=== PATIENT | male | born 1950 | race Caucasian/White ===

== ENCOUNTER 2016-05-21 16:17 | Inpatient (IN) | payer OTHER, MEDICARE ==
[~2016-05-21] VITALS: Ht 177.8 cm; Wt 95.3 kg
--- NOTE | 2016-05-21 16:34 | NUR ---
RECEIVED 65 YO MALE C/O EPISODES OF CLAMMINESS, NAUSEA, FEELING ANXIOUS X ONE MONTH, ONE OR TWICE A WEEK. SYMPTOMS NON STOP SINCE 10 AM TODAY. RELIEVED BY HOT SHOWER THIS AM BUT CAME RIGHT BACK. NO C/O CP. SOME SOB. + NAUSEA, VOMITED ONCE TODAY. NO C/O ABDOMINAL PAIN
--- NOTE | 2016-05-21 16:36 | NUR ---
PT SENT TO [facility] FOR EKG. PULSE VERY IRREGULAR.
--- NOTE | 2016-05-21 16:54 | ED CARDIAC/CP/PALPITATIONS ---
History of Present Illness General Chief Complaint: General Adult Stated Complaint: PT SOB ,ANXIETY ,SWEATING Source: patient Exam Limitations: no limitations Vital Signs & Intake/Output Vital Signs & Intake/Output Vital Signs Date Time Temp Pulse Resp B/P Pulse O2 O2 Flow FiO2 Ox Delivery Rate 05/24 1147 62 132/64 05/24 0817 97.1 64 18 122/70 96 Room Air 05/23 2246 97.7 58 18 160/78 98 Room Air 05/23 2129 59 05/23 1654 97.4 69 20 122/70 96 Room Air 05/23 1449 142/80 ED Intake and Output 05/24 0000 05/23 1200 Intake Total 1210 435 Output Total 500 600 Balance 710 -165 Intake, IV 10 15 Intake, Oral 1200 420 Output, Urine 500 600 Patient 210 lb Weight Reconcile Medications Aspirin (Ecotrin*) 81 MG TABLET.DR 1 TAB PO DAILY HEART/BLOOD (Reported) Cholecalciferol (Vitamin D3) (Vitamin D) 2,000 UNIT CAPSULE 1 CAP PO DAILY SUPPLEMENT (Reported) Diphenhydramine HCl (Benadryl) 25 MG CAPSULE 1 CAP PO DAILY ALLERGIES ( Reported) Fenofibrate 160 MG TABLET 1 TAB PO DAILY CHOLESTEROL/TRIGLYCERIDES (Reported) Gabapentin 300 MG CAPSULE 1 CAP PO 4XDAILY NERVE PAIN (Reported) Metformin HCl 1,000 MG TABLET 1 TAB PO BID DM (Reported) Multivitamin (Multi-Day Vitamins) 1 EACH TABLET 1 TAB PO DAILY SUPPLEMENT ( Reported) [place]-3 Fatty Acids/Fish Oil (Fish Oil 1,000 MG Softgel) (Unknown Strength) CAPSULE (Unknown Dose) PO DAILY SUPPLEMENT (Reported) Oxycodone HCl/Acetaminophen (Oxycodone-Acetaminophen 10-325) 10 MG-325 MG TABLET 1 TAB PO Q4-6H PRN PAIN (Reported) Triage Note: RECEIVED 65 YO MALE C/O EPISODES OF CLAMMINESS, NAUSEA, FEELING ANXIOUS X ONE MONTH, ONE OR TWICE A WEEK. SYMPTOMS NON STOP SINCE 10 AM TODAY. RELIEVED BY HOT SHOWER THIS AM BUT CAME RIGHT BACK. NO C/O CP. SOME SOB. + NAUSEA, VOMITED ONCE TODAY. NO C/O ABDOMINAL PAIN Triage Nurses Notes Reviewed? yes HPI: THIS PATIENT is a 65-year-old male with a past medical history including hyperlipidemia, chronic back pain, and diabetes who presented to the emergency department today for evaluation of multiple episodes of sweating, nausea, and shortness of breath. The patient reported that in February he was at pain management when they told him to go get x-rays of his lower back for pain he was having. X-ray showed, "something," and he was referred to get an ultrasound to rule out any aneurysm. He had an ultrasound at the beginning of March which was negative for aneurysm. On April 18 the patient reported that he had an episode of sweating and nausea. He took a hot shower and his symptoms resolved. Since that time he has had similar episodes approximately 2 times a week which are usually resolved once he takes a hot shower. He reported that he feels his heart skipping a beat when this happens and it makes him feel like it is difficult to breathe. Usually the episodes only last approximately 15 minutes. However, today he has had multiple episodes and since about 10:00 this morning the episode has been constant. He reported that he vomited once after eating lunch with associated nausea. No current nausea or abdominal pain. The patient is denying any chest pain or difficulty breathing at the present. He reported that he just feels, "off." He recently had blood work done by his doctor which was largely unremarkable. No cardiac workup was done at that time. He denied any fevers, chills, visual changes, numbness and tingling worse from his baseline neuropathy, constipation, or diarrhea. (WINSTON CASTELLON PA-C) Allergies Coded Allergies: NO KNOWN ALLERGIES (UNKNOWN 05/24/16) (DELTA JOEL,ROBERTO) Past History Travel History Traveled to [place] past 21 day No Medical History Any Pertinent Medical History? see below for history Neurological: NONE EENT: NONE Cardiovascular: hyperlipidemia Respiratory: NONE Gastrointestinal: NONE Hepatic: NONE Renal: NONE Musculoskeletal: chronic back pain Psychiatric: NONE Endocrine: diabetes Blood Disorders: NONE Cancer(s): NONE Surgical History Surgical History: non-contributory Psychosocial History What is your primary language Lithuanian Tobacco Use: Quit >30 days ago Family History Hx Contributory? No (WINSTON CASTELLON PA-C) Review of Systems Review of Systems Constitutional: Reports: see HPI. EENTM: Reports: no symptoms. Respiratory: Reports: see HPI. Cardiovascular: Reports: see HPI. GI: Reports: see HPI. Genitourinary: Reports: no symptoms. Musculoskeletal: Reports: see HPI. Skin: Reports: no symptoms. Neurological/Psychological: Reports: see HPI. All Other Systems: Reviewed and Negative (CANDE MORROW,WINSTON) Physical Exam Physical Exam Cardiovascular: REGULAR RATE WITH AN IRREGULAR RHYTHM. nO MURMURS, RUBS, OR GALLOPS. nO jvd OR CAROTID BRUITS Comments: Well-developed well-nourished person in no acute distress HEENT: Normal EENT exam, head normocephalic, moist mucous membranes PERRLA bilaterally Neck: Supple, no lymphadenopathy Back: Normal inspection Respiratory: No respiratory distress. Speaking in full sentences. Lungs clear to auscultation bilaterally with no wheezes, rales, or rhonchi Abdomen: Soft, nontender and nondistended. No organomegaly. Normoactive bowel sounds. No rebound or guarding. No peritoneal signs Extremity: No edema, no calf tenderness to palpation, normal and equal pulses. Neuro: Alert oriented x3, cranial nerves II through XII grossly intact. Skin: No appreciable rash on exposed skin, skin is warm and dry. Psych: Mood and affect is normal Core Measures ACS in differential dx? Yes Severe Sepsis Present: No Septic Shock Present: No (WINSTON CASTELLON PA-C) Progress Differential Diagnosis: AMI, aortic dissection, atrial fibrillation, cholecystitis, CHF/pulm edema, costochondritis, hyperkalemia, hyperthyroid, hyperventilation, musculoskeletal pain, myocarditis, pancreatitis, pericarditis, pneumonia, pneumothorax, PSVT, pulmonary embolism, PUD/GERD, PVCs/PACs, unstable angina Plan of Care: Orders Procedure Date/time Status THYROID STIMUL IMMUNOGLOB Ref$ 05/24 0600 Active THYROID STIMULATING HORMONE 05/24 0600 Complete FREE T4 05/24 0600 Complete THYROID ANTIBODY PANEL 05/24 0600 Complete House Staff 05/24 UNK Active EKG 05/22 0200 Active Current Medications Sig/Nicole Start time Last Medication Dose Stop Time Status Admin Dipyridamole 55 MG ONE ONE 05/24 1115 AC (Persantine I.v. 5MG 05/24 1514 Per Ml (10ML Baylee)) Dextrose/Water 29 ML (D5w (Persantine Stress Test)) Ibuprofen 400 MG Q4P PRN 05/24 0930 AC (Motrin) Oxycodone/ 2 TAB Q4-6 PRN PRN 05/24 0930 AC Acetaminophen (Percocet) Laboratory Tests 05/24/16 0620: Thyroid Stim Immunoglob Pending 05/24/16 0620: TSH 0.305, Free T4 1.40, Thyroglobulin Antibody 16, Thyroid Peroxidase Ab 46 Diagnostic Imaging: Viewed by Me: Radiology Read. Discussed w/RAD: Radiology Read. CXR Impression: PATIENT: GENE GE PRESENT AGE: 65 PATIENT ACCOUNT NO: [id number] : 52 LOCATION: [facility] ORDERING PHYSICIAN: WINSTON CASTELLON PA-C SERVICE DATE: 05/21/16 EXAM TYPE: RAD - XRY-CHEST XRAY, PA AND LATERAL EXAMINATION: CHEST 2 VIEWS CLINICAL INFORMATION: Nausea, vomiting. COMPARISON: None. TECHNIQUE: PA and lateral views of the chest were obtained. FINDINGS: The cardiac silhouette is not enlarged. The mediastinal and hilar contours are unremarkable. There are neither pleural effusions nor pneumothoraces. There are no consolidations. The osseous structures are unremarkable. IMPRESSION: No evidence for acute disease. DICTATED BY: POLA POLANCO MD DATE/TIME DICTATED:05/21/161754 OYSTER FARMER:LISSA DATE/TIME TRANSCRIBED:05/21/161754 CONFIDENTIAL, DO NOT COPY WITHOUT APPROPRIATE AUTHORIZATION. <Electronically signed in Other Vendor System> SIGNED BY: POLA POLANCO MD 05/21/16 1800 Initial ED EKG: MULTIPLE PREMATURE VENTRICULAR CONTRACTIONS, 71 BPM Comments: 05/21/2016 6:14:54 PM: Dr. Heath is at the patient's bedside for avdi-ls-papy evaluation. 05/21/2016 6:20:32 PM: I spoke to on-call box stapler, Dr. Munoz. He reported that he will consult on this patient. This patient was handed off to Dr. Heath for telemetry observation. (CANDE MORROW,WINSTON) Departure Departure Disposition: STILL A PATIENT Condition: Stable Clinical Impression Primary Impression: Abnormal EKG Referrals: EDIS MARISCAL MD (PCP/Family) Departure Forms: Customer Survey General Discharge Information Observation Note Spoke With: SONIA FERREIRA MD Patient In: Non-ED OBS Care Area Rationale for Observation: My rational for observation is as follows [This patient is a 65 year old male with a history of diabetes who presented for evaluation of diaphoresis, nausea, and chest palpitation. Abnormal EKG with ectopy. Troponin 0.06. Patient should be a telemetry observation for echocardiogram, trend labs, serial troponin levels, serial EKGs, stress test, and close monitoring.]. (CANDE MORROW,WINSTON) PA/OIL AND GAS EXPLORATION TECHNICIAN Co-Sign Statement Statement: ED Attending supervision documentation- [] I saw and evaluated the patient. I have also reviewed all the pertinent lab results and diagnostic results. I agree with the findings and the plan of care as documented in the PA's/OIL AND GAS EXPLORATION TECHNICIAN's documentation. [X] I have reviewed the ED Record and agree with the PA's/OIL AND GAS EXPLORATION TECHNICIAN's documentation. [] Additions or exceptions (if any) to the PAs/OIL AND GAS EXPLORATION TECHNICIAN's note and plan are summarized below: [] (DELTA JOEL,ROBERTO) Critical Care Note Critical Care Note Critical Care Time: 30-74 min (CANDE MORROW,WINSTON) 30.2, RDW 13.2, MPV 6.8 L, Gran % 54.0, Lymphocytes % 33.9, Monocytes % 8.2, Eosinophils % 3.4, Basophils % 0.5, Absolute Granulocytes 3.8, Absolute Lymphocytes 2.4, Absolute Monocytes 0.6, Absolute Eosinophils 0.2, Absolute Basophils 0, PUBS MCHC 33.8, Serum Alcohol Pending Diagnostic Imaging: Viewed by Me: Radiology Read. Discussed w/RAD: Radiology Read. CXR Impression: PATIENT: GENE GE PRESENT AGE: 65 PATIENT ACCOUNT NO: [id number] : 52 LOCATION: [facility] ORDERING PHYSICIAN: WINSTON CASTELLON PA-C SERVICE DATE: 05/21/16 EXAM TYPE: RAD - XRY-CHEST XRAY, PA AND LATERAL EXAMINATION: CHEST 2 VIEWS CLINICAL INFORMATION: Nausea, vomiting. COMPARISON: None. TECHNIQUE: PA and lateral views of the chest were obtained. FINDINGS: The cardiac silhouette is not enlarged. The mediastinal and hilar contours are unremarkable. There are neither pleural effusions nor pneumothoraces. There are no consolidations. The osseous structures are unremarkable. IMPRESSION: No evidence for acute disease. DICTATED BY: POLA POLANCO MD DATE/TIME DICTATED:05/21/161754 OYSTER FARMER:LISSA DATE/TIME TRANSCRIBED:05/21/161754 CONFIDENTIAL, DO NOT COPY WITHOUT APPROPRIATE AUTHORIZATION. <Electronically signed in Other Vendor System> SIGNED BY: POLA POLANCO MD 05/21/16 1800 Initial ED EKG: MULTIPLE PREMATURE VENTRICULAR CONTRACTIONS, 71 BPM Comments: 05/21/2016 6:14:54 PM: Dr. Heath is at the patient's bedside for [id number] evaluation. 05/21/2016 6:20:32 PM: I spoke to on-call box stapler, Dr. Munoz. He reported that he will consult on this patient. This patient was handed off to Dr. Heath for telemetry observation. Departure Departure Disposition: STILL A PATIENT Condition: Stable Clinical Impression Primary Impression: Abnormal EKG Referrals: EDIS MARISCAL MD (PCP/Family) Departure Forms: Customer Survey General Discharge Information Observation Note [facility]: [facility] Patient In: Non-ED OBS Care Area Rationale for Observation: My rational for observation is as follows [This patient is a 65 year old male with a history of diabetes who presented for evaluation of diaphoresis, nausea, and chest palpitation. Abnormal EKG with ectopy. Troponin 0.06. Patient should be a telemetry observation for echocardiogram, trend labs, serial troponin levels, serial EKGs, stress test, and close monitoring.]. Critical Care Note Critical Care Note Critical Care Time: 30-74 min
--- NOTE | 2016-05-21 17:02 | NUR ---
PT TO ROOM19 BY WINSTON JACKSON PA TO BEDSIDE FOR PT EVAL.
[2016-05-21 17:23] LABS: ABSOLUTE BASOPHIL COUNT 0 /CUMM (0.0-0.2); ABSOLUTE EOSINOPHIL COUNT 0.2 /CUMM (0.0-0.7); ABSOLUTE GRANULOCYTE CT 3.8 /CUMM (1.4-6.5); ABSOLUTE LYMPH COUNT 2.4 /CUMM (1.2-3.4); ABSOLUTE MONOCYTE COUNT 0.6 /CUMM (0.10-0.60); BASOPHIL % 0.5 % (0.0-2.0); EOSINOPHIL % 3.4 % (0-5); HEMATOCRIT 45.8 % (42-52); MEAN CORPUSCULAR HGB 30.2 PG (27.0-31.0); MEAN CORPUSCULAR HGB CONC 33.8 G/DL (33.0-37.0); MEAN CORPUSCULAR VOLUME 89.3 FL (80.0-94.0); MEAN PLATELET VOLUME 6.8 FL (7.4-10.4); PLATELET COUNT 223 /CUMM (130-400); RBC DISTRIBUTION WIDTH 13.2 % (11.5-14.5); RED BLOOD CELL CT 5.13 /CUMM (4.70-6.10); WHITE BLOOD CELL COUNT 7.1 /CUMM (4.8-10.8)
[2016-05-21 17:37] LABS: PT 10.9 SEC (9.4-12.5); PTT 31 SEC (25-37)
[2016-05-21] MEDS ORDERED: METFORMIN HCL1000 M1 PO (17:48)
[2016-05-21] MEDS ORDERED: OXYCODONE-ACET1 EAC1 PO (17:49)
[2016-05-21] MEDS ORDERED: GABAPENTIN300 M2 PO (17:50)
[2016-05-21] MEDS ORDERED: ASPIRIN EC81 M1 PO (17:50)
--- NOTE | 2016-05-21 17:50 | NUR ---
PT TO AND FROM RAD BY STRETCHER. AWAITING RESULTS.
[2016-05-21] MEDS ORDERED: FENOFIBRATE160 M1 PO (17:51)
[2016-05-21] MEDS ORDERED: BENADRYL25 MG PO (17:51)
[2016-05-21] MEDS ORDERED: VITAMIN D2000 UNIT PO (17:51)
[2016-05-21] MEDS ORDERED: FISH OIL 1,0001 EAC4 PO (17:52)
[2016-05-21] MEDS ORDERED: MULTI-DAY VITA1 EACH PO (17:52)
--- NOTE | 2016-05-21 18:00 | RADIOLOGY REPORT ---
EXAMINATION: CHEST 2 VIEWS CLINICAL INFORMATION: Nausea, vomiting. COMPARISON: None. TECHNIQUE: PA and lateral views of the chest were obtained. FINDINGS: The cardiac silhouette is not enlarged. The mediastinal and hilar contours are unremarkable. There are neither pleural effusions nor pneumothoraces. There are no consolidations. The osseous structures are unremarkable. IMPRESSION: No evidence for acute disease.
--- NOTE | 2016-05-21 18:10 | NUR ---
MD DELTA TO BEDSIDE FOR PT EVAL.
--- NOTE | 2016-05-21 18:32 | NUR ---
SST TUBE DRAWN AND SENT TO LAB.
--- NOTE | 2016-05-21 18:52 | NUR ---
PT MEDICATED WITH ROXICODONE PER EMAR.
--- NOTE | 2016-05-21 20:20 | History & Physical ---
ROLLY JOEL,AYESHA 05/21/16 2019: General Information and HPI MD Statement: I have seen and personally examined GENE GE and documented this H&P. The patient is a 65 year old M who presented with a patient stated chief complaint of [sweating, anxiety]. Source of Information: patient Exam Limitations: no limitations History of Present Illness: Patient is a 65-year-old gentleman with PMH of DM, HTN, chronic back pain and knee pain, who came to the ED due to episodes of sweating and severe anxiety. Patient has been having these symptoms since about 1 month ago with episodes of sweating and feeling 'clammy', with anxiety, not associated with chest pain, palpitations or dizziness. Patient also reported feeling of 'gasping' when these episodes happened and felt he needed to take deep breaths, but had no SOB. These episodes lasted for about 5 minutes, first occurred once or 2 twice a week, however it has been more frequent during the past couple of days, he reports once waking up from sleep with excessive sweating last night, and since 10 AM today he has had the symptoms non-stop. Reports that taking shower brings some temporary relief . Reports nausea and vomited once today after lunch. Reports stopped smoking about a month ago and feels his symptoms began right after that, although he has been using nicotine gums, which hasn't helped. He went to the PCP for the symptoms who told him they may be due to a withdrawal from gabapentin as he wasn't taking them at that time. However he has has symptoms afterwards despite taking gabapentin. In the PCP visit he was found to have blood in the stool in the screening and is scheduled for colonoscopy on June 17. During the same visit he was told by the nurse that they felt irregularity in his heartbeat however he doesn't feel any palpitations. Has no history of heart disease. He is diabetic but sugars have been well-controlled. Last time he checked was 145. He also has been checking BP and HR since the PCP visit at home and had measurements of BP: 168/98, HR:110 and another time BP:155/96 and HR:70. Today in the evening had one time BP of 85/58 which thinks was an error but still made him more concerned and decided to come to the ED. Patient reports chronic back pain 8-9/10 in severity (s/p surgeries) as well as knee pain, he has to use three pillows below his head and one pillow underneath his right knee when sleeping (due to pain). Does not get SOB when lying flat. Allergies/Medications Allergies: Coded Allergies: NO KNOWN ALLERGIES (05/21/16) Home Med list Aspirin (Ecotrin*) 81 MG TABLET.DR 1 TAB PO DAILY HEART/BLOOD (Reported) Cholecalciferol (Vitamin D3) (Vitamin D) 2,000 UNIT CAPSULE 1 CAP PO DAILY SUPPLEMENT (Reported) Diphenhydramine HCl (Benadryl) 25 MG CAPSULE 1 CAP PO DAILY ALLERGIES ( Reported) Fenofibrate 160 MG TABLET 1 TAB PO DAILY CHOLESTEROL/TRIGLYCERIDES (Reported) Gabapentin 300 MG CAPSULE 1 CAP PO 4XDAILY NERVE PAIN (Reported) Metformin HCl 1,000 MG TABLET 1 TAB PO BID DM (Reported) Multivitamin (Multi-Day Vitamins) 1 EACH TABLET 1 TAB PO DAILY SUPPLEMENT ( Reported) [place]-3 Fatty Acids/Fish Oil (Fish Oil 1,000 MG Softgel) (Unknown Strength) CAPSULE (Unknown Dose) PO DAILY SUPPLEMENT (Reported) Oxycodone HCl/Acetaminophen (Oxycodone-Acetaminophen 10-325) 10 MG-325 MG TABLET 1 TAB PO Q4-6H PRN PAIN (Reported) Compliance With Home Meds: GOOD Past History Travel History Traveled to [place] past 21 day No Medical History Neurological: NONE EENT: NONE Cardiovascular: hyperlipidemia Respiratory: NONE Gastrointestinal: NONE Hepatic: NONE Renal: NONE Musculoskeletal: chronic back pain Psychiatric: NONE Endocrine: diabetes Blood Disorders: NONE Cancer(s): NONE Surgical History Surgical History: non-contributory Past Family/Social History Family History Relations & Conditions if any FATHER FH: diabetes mellitus BROTHER FH: diabetes mellitus BROTHER FH: diabetes mellitus Psychosocial History Where do you live? Home (with ) Smoking Status: Former Smoker (quit 1m ago, 1pack/d for 50 y) ETOH Use: occasional use, 6 packs a week Illicit Drug Use: denies illicit drug use Functional Ability ADLs Independent: dressing, eating, toileting, bathing. Ambulation: independent Employment History Employment Disability Review of Systems Review of Systems Constitutional: Reports: chills. Denies: fever, malaise, weakness, unexplained weight loss. EENTM: Denies: visual changes. Cardiovascular: Denies: chest pain, orthopena, palpitations, peripheral edema, syncope. Respiratory: Denies: cough, short of breath, sputum production. GI: Reports: nausea, vomiting. Denies: bloating, changes in stool. Genitourinary: Reports: frequency. Musculoskeletal: Reports: back pain, joint pain (knees). Skin: Denies: change in skin color, rash. Neurological/Psychological: Reports: anxiety. Denies: headache, numbness, weakness. Exam & Diagnostic Data Last 24 Hrs of Vital Signs/I&O Vital Signs Date Time Temp Pulse Resp B/P Pulse O2 O2 Flow FiO2 Ox Delivery Rate 05/22 0004 98.0 72 20 167/78 94 05/21 1940 97.4 72 18 157/85 96 Room Air 05/21 1825 97.5 66 20 159/86 97 Room Air 05/21 1702 Room Air 05/21 1651 96.8 71 18 185/90 98 Room Air Intake & Output 05/22 0800 05/22 0000 05/21 1600 Intake Total Output Total Balance Patient 96.615 kg Weight Physical Exam General Appearance Alert, Oriented X3, Cooperative, No Acute Distress Skin has flushing in the face HEENT Atraumatic, EOMI, dry mucous membranes Neck Supple, No JVD Cardiovascular Regular Rate, Normal S1, Normal S2, No Murmurs Lungs Clear to Auscultation, Normal Air Movement Abdomen Normal Bowel Sounds, Soft, No Tenderness, distended Neurological Normal Speech, Normal Tone, absent knee reflexes and decreased (1+) relfex in the left biceps ) Extremities No Cyanosis, No Edema, Normal Pulses, No Tenderness/Swelling Vascular Normal Pulses, Pulses Symmetrical Last 24 Hrs of Labs/Dong: Laboratory Tests 05/22/16 0025: Methadone Screen Pending, Barbiturate Screen Pending, Ur Phencyclidine Scrn Pending, Amphetamines Screen Pending, U Benzodiazepines Scrn Pending, Urine Cocaine Screen Pending, Urine Cannabis Screen Pending 05/22/16 0005: Troponin I Pending 05/21/16 2226: Lactic Acid 1.6 05/21/16 1830: Lyme Disease Antibody Pending 05/21/16 1714: TSH Cancelled, Free T4 Cancelled 05/21/16 1711: Anion Gap 16, Estimated GFR > 60, BUN/Creatinine Ratio 14.4, Glucose 146 H, Hemoglobin A1c Pending, Lactic Acid 2.3 H, Calcium 10.4 H, Magnesium 1.9, Total Bilirubin 0.6, Direct Bilirubin 0.3, AST 51, ALT 73 H, Alkaline Phosphatase 73, Troponin I 0.06, Total Protein 7.8, Albumin 4.8, Globulin 3.0, Albumin/Globulin Ratio 1.6, Amylase 31, Lipase 136, TSH 0.135 L, Free T4 1.36, PT 10.9, INR 1.04, APTT 31, CBC w Diff NO MAN DIFF REQ, RBC 5.13, MCV 89.3, MCH 30.2, RDW 13.2, MPV 6.8 L, Gran % 54.0, Lymphocytes % 33.9, Monocytes % 8.2, Eosinophils % 3.4, Basophils % 0.5, Absolute Granulocytes 3.8, Absolute Lymphocytes 2.4, Absolute Monocytes 0.6, Absolute Eosinophils 0.2, Absolute Basophils 0, PUBS MCHC 33.8, Serum Alcohol < 10.0 Assessment/Plan Assessment: Patient is a 65 year old with PMH of HTN and DM that is come to the ED due to progressive worsening symptoms of diaphoresis and feeling of anxiety. Patient was found to have irregular beats during a previous PCP visit. ED work up shows low TSH levels, elevated lactic acid and metabolic acidosis, elevated Ca. Also mild elevation in ALT. Problem list and plan: Episodes of severe anxiety with sweating In the setting of tachycardia, flushing, decreased TSH levels, the etiology can be hyperthyroidism. Patient also reported elevated blood pressures to 168/98. Also BP of 180/90 at 2 am after admission. peochromocytoma can also be one of the possible etiologies. Patient denies chest pain, palpitation or dizziness. Has PVCs in EKG with no ST changes. Troponin 0.06. Reports nausea. * repeat TFT in a.m. and add T4 and T3 * serial troponin and EKG to rule out MT * vital signs every shift * Zofran PRN * Endocrine consult in am Metabolic acidosis with elevated lactic acid Lactic acidosis could be due to metformin. Patient has normal capillary refill Alcohol intoxication could be a possibility although the Patient reports consuming alcohol a pack of 6 beers per week and denies any alcohol dependence. * IV NaCl 75cc/hour * repeat lactic acid in 6 hours * urine toxicology and serum alcohol level * Endocrine consult in am History of DM reports well controlled DM, BS was 145 last time checked. takes Metformin 1000 BID * Held metformin * accuchecks TIDAC * Insulin NSS * HbA1C Hypercalcemia Takes multivitamins and VitD3 * check PTH * Check 1,25 dihydroxy vitamin D Diet * CC3 DVT px * Lovenox Full code As Ranked By This Provider Problem List: 1. Hyperthyroidism 2. Anxiety 3. Diaphoresis Core Measures/Miscellaneous Acute Coronary Syndrome ACS Diagnosis: No Cerebrovascular Accident CVA/TIA Diagnosis: No Congestive Heart Failure CHF Diagnosis: No Venous Thromboembolism VTE Risk Factors: Acute medical illness, Age > 40 No [facility] VTE prophylaxis d/t: No contraindications No VTE Pharm Prophylaxis d/t: No contraindications VTE Diagnosis: No VTE Type: NONE VTE Confirmed by (Test): NONE Severe Sepsis Severe Sepsis Present: No Septic Shock Septic Shock Present: No Miscellaneous Documentation Attending Case Discussed With: SONIA FERREIRA MD Primary Care Physician: EDIS MARISCAL MD Patient sees these Specialists none Level of Patient Care: Telemetry JUSCIRA 05/21/16 1979: Resident Review Statement Resident Statement: examined this patient, discussed with international account manager, agreed with international account manager Other Findings: This is a 65 years old gentleman with past medical history of diabetes mellitus and hyperlipidemia who is presenting with 1 month history of clumsiness nausea vomiting anxiousness with the first episode starting on April 18 after [place] 500 mg daily memorable to the patient. After that initial episode the patient has been having 1-2 episodes a week usually short lasting for about 5 minutes. Today he is coming because since morning has been having the same feeling and is consistently persisting which is of great concern to the patient. He acknowledges that it feels like a panic attack but he has never had anxiety or panic attack in the past and is not on any antianxiety medications. He denies any chest pain associated with these episodes though he acknowledges palpitation and sometimes measuring his heart rate and finding it to be about 110. Patient reports sweating and sometimes he wakes up completely soaked in sweat with the same feeling of clumsiness and anxiousness. She denies shortness of breath, dizziness or finding low blood sugar with the episodes consistently blood pressure has been on 140s when having the symptoms. On arrival in the ER patient was afebrile 96.8 heart rate of 71 respiration of 18 blood pressure slightly on the higher side 185/90 and saturating 98% on room air. Physical examination: Patient seated comfortably on the bed watching television not in acute distress alert and oriented to time place and person very cooperative. Extremities: No excessive pound sweating no tremors HEENT: Normal eyes without exophthalmos, wet mucous membranes CVS: Regular rate and rhythm, normal S1-S2 no murmurs RS: Clear lungs bilaterally Labs: Mild lactic acidosis of 2.3, glucose of 146, hypercalcemia 10.4, low TSH 0.134 with normal T4 of 1.36 CXR no evidence of acute pathology Assessment and plan Multiple episodes of transient anxiousness clumsiness associated with nausea and excessive sweating. Problem list Rule out ACS Hyperparathyroidism Hyperparathyroidism Diabetes mellitus Possible hypoglycemic episodes Patient placed in observation, continuous telemetry monitoring Repeated lactic acid within normal level I.6 Serial troponin and EKG to rule out ACS Repeat TSH T3 and T4 Serum parathyroid hormone and vitamin D Accu-Cheks Insulin sliding scale low level Consistent carbohydrate 3 diet JHONSONIA ABARCA 05/22/16 0453: Attending MD Review Statement Attending Statement Attending MD Statement: examined this patient, discuss w/resident/PA/FEED PREPARATION OPERATOR, agreed w/resident/PA/FEED PREPARATION OPERATOR, reviewed EMR data (avail), reviewed images, amended to note Attending Assessment/Plan: CC: Clammy, anxious, sweating PMH: chronic back pain, DM, HLD Patient came to ER for history of episodic clamminess, anxiety, occurring since one month, on and off 1-2 times per week, associated with diaphoresis. Check blood sugar in one of these episodes which was 140, his blood pressure was elevated outpatient evaluation so he has been checking blood pressure which has been fluctuating a lot. Since 10 AM these symptoms of clamminess, anxiety, diaphoresis persisted so he came to ER, at the same time he checked blood pressure at home which was low. Vitals: Hypertensive blood pressure 180/90, otherwise unremarkable. On exam: A O 3, cooperative, no acute distress, neck supple, no JVD, no lymphadenopathy, mucosa moist, no focal neurological deficit, decreased reflexes bilateral lower extremity, no dependent edema, no obvious skin rashes or inflammation CVS: S1-S2, RRR. RS: Clear to auscultate bilaterally. Abdomen: Soft , NT, ND, bowel sounds present. Peripheral pulses perfusion normal. Labs: CBC, BMP, LFT unremarkable except bicarbonate 20, anion gap 16, glucose 146, lactic acid 2.3, calcium 10.4, ALT 73, , INR 1.04. TSH 0.135, free T4 136 CXR: Unremarkable. EKG: Multiple PVCs A and P #1 clamminess, diaphoresis: Episodic. Now, and with persistent symptoms, few PVCs on EKG, troponin 0.06. history of diabetes, place in observation on telemetry for monitoring, serial EKG, troponin. Patient is mildly hypertensive at presentation, monitor blood pressure closely may require treatment. #2 low TSH with normal T4 : Symptoms of anxiety, sweating, diaphoresis. Pulse normal range no tachycardia, no obvious weight gain or weight loss, no diarrhea or other symptoms. Repeat TSH, free T3 and T4 in a.m., endocrinology consult for suspected hypothyroidism. With episode it nature off clamminess, diaphoresis, and hypertension ?Workup regarding secondary causes of hypertension. Checking U tox, check PTH and vitamin D #3 lactic acidosis: 2.3, unclear etiology, blood pressure normal, no obvious source of infection, probably secondary to metformin, continue gentle hydration 75 mL for 1 L then discontinue.
--- NOTE | 2016-05-21 20:42 | NUR ---
HOUSE STAFF TO BEDSIDE FOR PT EVAL.
--- NOTE | 2016-05-21 20:57 | NUR ---
PT HAS A BED 173-21
--- NOTE | 2016-05-21 21:24 | NUR ---
NS INFUSING PER EMAR.
--- NOTE | 2016-05-21 22:18 | NUR ---
REPORT GIVEN TO ZEE GARCIA TO [facility]. DISTRIBUTION CALLED FOR TRANSPORT.
[2016-05-22 00:04] VITALS: BP 167/78
[2016-05-22 02:35] VITALS: BP 180/90
--- NOTE | 2016-05-22 07:30 | NUR ---
NSG NOTE: PATIENT HAD 9BT VTACH; DENIES SYMPTOMS; DR. ROQUE MAHMOOD AWARE; WILL MONITOR
[2016-05-22 08:22] LABS: ABSOLUTE BASOPHIL COUNT 0 /CUMM (0.0-0.2); ABSOLUTE EOSINOPHIL COUNT 0.3 /CUMM (0.0-0.7); ABSOLUTE GRANULOCYTE CT 5.4 /CUMM (1.4-6.5); ABSOLUTE LYMPH COUNT 2.7 /CUMM (1.2-3.4); ABSOLUTE MONOCYTE COUNT 0.6 /CUMM (0.10-0.60); BASOPHIL % 0.5 % (0.0-2.0); EOSINOPHIL % 3.2 % (0-5); HEMATOCRIT 45.3 % (42-52); MEAN CORPUSCULAR HGB 30.6 PG (27.0-31.0); MEAN CORPUSCULAR HGB CONC 34.5 G/DL (33.0-37.0); MEAN CORPUSCULAR VOLUME 88.8 FL (80.0-94.0); MEAN PLATELET VOLUME 6.9 FL (7.4-10.4); PLATELET COUNT 219 /CUMM (130-400); RBC DISTRIBUTION WIDTH 13.1 % (11.5-14.5); WHITE BLOOD CELL COUNT 9.1 /CUMM (4.8-10.8)
[2016-05-22 09:00] VITALS: BP 170/80
--- NOTE | 2016-05-22 09:31 | PN- Housestaff ---
SUSAN HENDRICKS 05/22/16 0912: Subjective Follow-up For: Diaphoresis and anxiety. Hypertension. Tele-Events Since Last Visit: Multiple bigeminy, trigeminy and a 9 beat run. Subjective: Continues to have episodes of feeling sick to the stomach, clamminess, and anxiety. Had an episode overnight where He found himself soaked in sweat. Episodes associated with pounding and fluttering of heart. Ativan seems to calm him down. Never been on antihypertensive medication. No family history of renal disease or hypertension. No recent weight loss. Has been on oxycodone for years for lower back pain, having had symptoms of nausea/vomiting, joint pains, increased secretions or any other signs of withdrawal in the past. Denies any missing/skipping days off pain medications. Quit smoking recently in 2016. Denies any chest pain or shortness of breath. Denies any sense of impending doom. All other systems reviewed, and negative exceptions above. Review of Systems Constitutional: Reports: see HPI. Objective Last 24 Hrs of Vital Signs/I&O Vital Signs Date Time Temp Pulse Resp B/P Pulse O2 O2 Flow FiO2 Ox Delivery Rate 05/22 0900 98.0 66 18 170/80 98 Room Air 05/22 0235 97.7 76 180/90 05/22 0004 98.0 72 20 167/78 94 05/21 1940 97.4 72 18 157/85 96 Room Air 05/21 1825 97.5 66 20 159/86 97 Room Air 05/21 1702 Room Air 05/21 1651 96.8 71 18 185/90 98 Room Air Intake & Output 05/22 1600 05/22 0800 05/22 0000 Intake Total 840 Output Total 500 Balance 340 Intake, IV 600 Intake, Oral 240 Output, Urine 500 Patient 213 lb Weight Physical Exam General Appearance: Alert, Oriented X3, Cooperative, Moderate Distress Cardiovascular: Regular Rate, Normal S1, Normal S2 Lungs: Clear to Auscultation, Normal Air Movement Abdomen: Normal Bowel Sounds, Soft, No Tenderness Extremities: No Clubbing, No Cyanosis, No Edema Current Medications: Current Medications Sig/Nicole Start time Last Medication Dose Route Stop Time Status Admin Acetaminophen 650 MG Q6P PRN 05/215 AC PO Acetaminophen/ 1 TAB Q6P PRN 05/21 224 AC Hydrocodone Bitart PO Aspirin Buffered 81 MG DAILY 05/22 1000 AC 05/22 PO 0914 Cholecalciferol 2,000 IU DAILY 05/22 1000 AC 05/22 PO 0915 Diphenhydramine HCl 25 MG DAILY 05/22 1000 AC 05/22 PO 0914 Enoxaparin Sodium 30 MG DAILY 05/22 1000 AC 05/22 SC 0914 Fenofibrate 145 MG DAILY 05/22 1000 AC 05/22 PO 0914 Gabapentin 300 MG 4 TIMES/DAY 05/22 1000 AC 05/22 PO 0914 Hydromorphone HCl 1 MG Q6P PRN 05/21 2245 AC 05/22 IV 0613 Insulin Aspart 0 TIDAC/HS 05/22 1200 AC SC Insulin Aspart 0 TIDAC 05/22 0800 DC 05/22 SC 0915 Lorazepam 0 Q1P PRN 05/22 0315 AC IV Lorazepam 0.5 MG ONCE ONE 05/22 0315 DC 05/22 IV 05/22 0316 0318 Metoprolol Tartrate 12.5 MG BID 05/22 1037 AC PO Multivitamins 1 TAB DAILY 05/22 1000 AC 05/22 Therapeutic PO 0914 Ondansetron HCl 4 MG Q6P PRN 05/22 0245 AC IV Oxycodone HCl 0 .STK-MED ONE 05/21 1852 DC PO Oxycodone HCl 10 MG ONCE ONE 05/21 1830 DC 05/21 PO 05/21 1831 1852 Sodium Chloride 1,000 ML ONCE ONE 05/21 2215 AC 05/21 IV 05/22 1134 2356 Sodium Chloride 1,000 ML ONCE ONE 05/21 2115 DC 05/21 IV 05/22 0354 2124 Thiamine HCl 100 MG DAILY 05/22 1000 AC 05/22 PO 05/24 1001 0914 Last 24 Hrs of Lab/Dong Results Last 24 Hrs of Labs/Mics: Laboratory Tests 05/22/16 0630: Anion Gap 14, Estimated GFR > 60, BUN/Creatinine Ratio 15.0, Calcium 10.2, Troponin I 0.05, TSH 0.186 L, Free T4 1.37, Thyroxine Binding Indx 32.7, PTH Intact 18.6 05/22/16 0630: Vit D 1,25-Dihyd Total Pending, 1,25 Dihydroxy Vit D2 Pending, 1,25 Dihydroxy Vit D3 Pending, CBC w Diff NO MAN DIFF REQ, RBC 5.10, MCV 88.8, MCH 30.6, RDW 13.1, MPV 6.9 L, Gran % 60.0, Lymphocytes % 30.1, Monocytes % 6.2, Eosinophils % 3.2, Basophils % 0.5, Absolute Granulocytes 5.4, Absolute Lymphocytes 2.7, Absolute Monocytes 0.6, Absolute Eosinophils 0.3, Absolute Basophils 0, PUBS MCHC 34.5 05/22/16 0025: Urine Opiates Screen 1133.00, Methadone Screen < 40, Barbiturate Screen < 60, Ur Phencyclidine Scrn < 6.00, Amphetamines Screen < 100, U Benzodiazepines Scrn < 85, Urine Cocaine Screen < 50, Urine Cannabis Screen < 5.00 05/22/16 0005: Troponin I 0.06 05/21/16 2226: Lactic Acid 1.6 05/21/16 1830: Lyme Disease Antibody Pending 05/21/16 1714: TSH Cancelled, Free T4 Cancelled 05/21/16 1711: Anion Gap 16, Estimated GFR > 60, BUN/Creatinine Ratio 14.4, Glucose 146 H, Hemoglobin A1c 6.5 H, Lactic Acid 2.3 H, Calcium 10.4 H, Magnesium 1.9, Total Bilirubin 0.6, Direct Bilirubin 0.3, AST 51, ALT 73 H, Alkaline Phosphatase 73, Troponin I 0.06, Total Protein 7.8, Albumin 4.8, Globulin 3.0, Albumin/Globulin Ratio 1.6, Amylase 31, Lipase 136, TSH 0.135 L, Free T4 1.36, PT 10.9, INR 1.04 , APTT 31, CBC w Diff NO MAN DIFF REQ, RBC 5.13, MCV 89.3, MCH 30.2, RDW 13.2, MPV 6.8 L, Gran % 54.0, Lymphocytes % 33.9, Monocytes % 8.2, Eosinophils % 3.4, Basophils % 0.5, Absolute Granulocytes 3.8, Absolute Lymphocytes 2.4, Absolute Monocytes 0.6, Absolute Eosinophils 0.2, Absolute Basophils 0, PUBS MCHC 33.8, Serum Alcohol < 10.0 Assessment/Plan Assessment: In this 65-year-old gentleman, one month history of episodic anxiety? Palpitations and sweating, in the setting of persistently elevated blood pressure while inpatient may suggest secondary hypertension. Patient has not been started on any antihypertensives currently. It is not uncommon for "essential"/primary hypertension to coexist with secondary hypertension. 1. Uncontrolled hypertension: Primary versus secondary. Will start patient on Metoprolol 12.5 BID, in light HTN, frequent PVCs and anxiety. May require additional anti-hypertensives. If acceptable blood pressure control is achieved with difficulty or "treatment resistant" hypertension, will evaluate for secondary causes of hypertension. Given patient's previous history of pain medication use, illicit drug use would have been a possible concern, negative U tox suggests against that. 2. Anxiety: Thyroid function tests may suggest sick euthyroid condition. Repeat thyroid function tomorrow. Secondary causes of hypertension, along with anxiety, palpitations, sweating may suggest pheochromocytoma, a less likely possibility. Endocrinology consult placed. PTH intact. 3. Ventricular premature beats. ACS ruled out. PVCs can occur sporadically, but ceratin conditions are associated with more frequent PVCs. One such condition being, Hypertension with LVH. Patient has had overnight bigeminy, trigeminy and quadrigemily, although these rarely cause severe symptoms and have no known prognostic importance, evalutaion with Echo is important in this gentleman with hypertension. Echocardiogram ordered. Metoprolol low dose to serve purpose of HTN, anxiety and PVCs. Cardiology consult. 4. Needs age appropriate cancer screening. Colonoscopy, low dose CT given smoking history etc as an out-patient. Continue other medications. Problem List: 1. Anxiety 2. Diaphoresis Pain Ratin Pain Location: Lower back Pain Goal: Remain pain free Pain Plan: Oxycodone Tomorrow's Labs & Rationales: CBC slightly BEP not needed. Thyroid function tests, if endocrinology recommends. MARILYN JOEL,HÉCTOR 05/22/16 2030: Attending Review Statement Attending Statement Attending MD Statement: examined this patient, discuss w/resident/PA/ADVISORY INTERN, agreed w/resident/PA/ADVISORY INTERN, discussed with family, reviewed EMR data (avail), discussed with nursing
--- NOTE | 2016-05-22 12:16 | Cons- Endocrinology ---
General Information and HPI Consulting Request Date of Consult: 05/22/16 Requested By: medical team Reason for Consult: evaluation of mild hypercalcemia and abnormal thyroid function test. Source of Information: patient, old records Exam Limitations: no limitations History of Present Illness: Patient is a 65-year-old gentleman with PMH of DM type 2, HTN, chronic back pain and knee pain, s/p both hip replacement ( on pain medication chronically), who came to the ED due to episodes of sweating, severe anxiety and feeling 'clammy'. Patient had first episode on 04/18/2016 after he stated reducing on pain medication. His BP was noticed to be 150/80. He doesn't have hx of hypertension. Since then, he has had multiple episodes that initially occurred once or 2 twice a week, lasted for about 5 minutes each. It has been more frequent during the past couple of days. On 05/21/2016, since 10 AM, he had the symptoms nonstop and then he came to ER. In ER, his BP 185/90, HR 71. Calcium 10.4, lactic acid 2.3, Sodium 140, K 4.4, TSH 0.135, free T4 1.36. HbA1c 6.5%, Cr 0.9. Repeat blood work showed calium 10.2, PTH 18, TSH 0.186 and free T4 1.37; lactic acide 1.6. Since he was admitted, he continues having the similar episodes. With regards to DM, he metformin was held; he is on Novolog coverage. His FSG was 193 this morning. Allergies/Medications Allergies: Coded Allergies: NO KNOWN ALLERGIES (05/21/16) Home Med List: Aspirin (Ecotrin*) 81 MG TABLET.DR 1 TAB PO DAILY HEART/BLOOD (Reported) Cholecalciferol (Vitamin D3) (Vitamin D) 2,000 UNIT CAPSULE 1 CAP PO DAILY SUPPLEMENT (Reported) Diphenhydramine HCl (Benadryl) 25 MG CAPSULE 1 CAP PO DAILY ALLERGIES ( Reported) Fenofibrate 160 MG TABLET 1 TAB PO DAILY CHOLESTEROL/TRIGLYCERIDES (Reported) Gabapentin 300 MG CAPSULE 1 CAP PO 4XDAILY NERVE PAIN (Reported) Metformin HCl 1,000 MG TABLET 1 TAB PO BID DM (Reported) Multivitamin (Multi-Day Vitamins) 1 EACH TABLET 1 TAB PO DAILY SUPPLEMENT ( Reported) Cameron-3 Fatty Acids/Fish Oil (Fish Oil 1,000 MG Softgel) (Unknown Strength) CAPSULE (Unknown Dose) PO DAILY SUPPLEMENT (Reported) Oxycodone HCl/Acetaminophen (Oxycodone-Acetaminophen 10-325) 10 MG-325 MG TABLET 1 TAB PO Q4-6H PRN PAIN (Reported) Review of Systems Review of Systems Constitutional: Reports: see HPI. Cardiovascular: Reports: palpitations. Respiratory: Denies: short of breath. GI: Reports: see HPI (stomach sick during episodes). Genitourinary: Reports: no symptoms. Hematologic/Endocrine: Reports: see HPI. 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 Home (with ) Smoking Status: Former Smoker (quit 1m ago, 1pack/d for 50 y) ETOH Use: occasional use, 6 packs a week Illicit Drug Use: denies illicit drug use Functional Ability ADLs Independent: dressing, eating, toileting, bathing. Ambulation: independent Employment History Employment: Disability Exam & Diagnostic Data Last 24 Hrs of Vital Signs/I&O Vital Signs Date Time Temp Pulse Resp B/P Pulse O2 O2 Flow FiO2 Ox Delivery Rate 05/22 0900 98.0 66 18 170/80 98 Room Air 05/22 0235 97.7 76 180/90 05/22 0004 98.0 72 20 167/78 94 05/21 1940 97.4 72 18 157/85 96 Room Air 05/21 1825 97.5 66 20 159/86 97 Room Air 05/21 1702 Room Air 05/21 1651 96.8 71 18 185/90 98 Room Air Intake & Output 05/22 1600 05/22 0800 05/22 0000 Intake Total 840 Output Total 500 Balance 340 Intake, IV 600 Intake, Oral 240 Output, Urine 500 Patient 213 lb Weight Physical Exam General Appearance: no apparent distress Neck: normal inspection, no thyroid enlargement Cardiovascular: regular rate/rhythm Gastrointestinal: soft, non-tender Extremities: no edema Labs/Dong Results: Laboratory Tests 05/22 05/22 0630 0630 Chemistry Sodium (137 - 145 mmol/L) 142 Potassium (3.5 - 5.1 mmol/L) 4.4 Chloride (98 - 107 mmol/L) 106 Carbon Dioxide (22 - 30 mmol/L) 23 Anion Gap (5 - 16) 14 BUN (9 - 20 mg/dL) 15 Creatinine (0.7 - 1.2 mg/dL) 1.0 Estimated GFR (>60 ml/min) > 60 BUN/Creatinine Ratio (7 - 25 %) 15.0 Calcium (8.4 - 10.2 mg/dL) 10.2 Troponin I (<0.11 ng/ml) 0.05 Vit D 1,25-Dihyd Total Pending 1,25 Dihydroxy Vit D2 Pending 1,25 Dihydroxy Vit D3 Pending TSH (0.270 - 4.200 uIU/mL) 0.186 L Free T4 (0.78 - 2.44 ng/dL) 1.37 Thyroxine Binding Indx (23.5 - 40.5 % UPTAKE) 32.7 PTH Intact (13.8 - 85 pg/ml) 18.6 Hematology CBC w Diff NO MAN DIFF REQ WBC (4.8 - 10.8 /CUMM) 9.1 RBC (4.70 - 6.10 /CUMM) 5.10 Hgb (14.0 - 18.0 G/DL) 15.6 Hct (42 - 52 %) 45.3 MCV (80.0 - 94.0 FL) 88.8 MCH (27.0 - 31.0 PG) 30.6 RDW (11.5 - 14.5 %) 13.1 Plt Count (130 - 400 /CUMM) 219 MPV (7.4 - 10.4 FL) 6.9 L Gran % (42.2 - 75.2 %) 60.0 Lymphocytes % (20.5 - 51.1 %) 30.1 Monocytes % (1.7 - 9.3 %) 6.2 Eosinophils % (0 - 5 %) 3.2 Basophils % (0.0 - 2.0 %) 0.5 Absolute Granulocytes (1.4 - 6.5 /CUMM) 5.4 Absolute Lymphocytes (1.2 - 3.4 /CUMM) 2.7 Absolute Monocytes (0.10 - 0.60 /CUMM) 0.6 Absolute Eosinophils (0.0 - 0.7 /CUMM) 0.3 Absolute Basophils (0.0 - 0.2 /CUMM) 0 PUBS MCHC (33.0 - 37.0 G/DL) 34.5 05/22 05/22 05/21 05/21 05/21 0025 0005 2226 1830 1714 Chemistry Lactic Acid (0.7 - 2.1 mmol/L) 1.6 Troponin I (<0.11 ng/ml) 0.06 TSH Cancelled Free T4 Cancelled Serology Lyme Disease Antibody Pending Toxicology Urine Opiates Screen (>2000 NG/ML) 1133.00 Methadone Screen (>300 NG/ML) < 40 Barbiturate Screen (>200 NG/ML) < 60 Ur Phencyclidine Scrn (>25 NG/ML) < 6.00 Amphetamines Screen (>1000 NG/ML) < 100 U Benzodiazepines Scrn (>200 NG/ML) < 85 Urine Cocaine Screen (>300 NG/ML) < 50 Urine Cannabis Screen (>50 NG/ML) < 5.00 05/21 1711 Chemistry Sodium (137 - 145 mmol/L) 140 Potassium (3.5 - 5.1 mmol/L) 4.4 Chloride (98 - 107 mmol/L) 104 Carbon Dioxide (22 - 30 mmol/L) 20 L Anion Gap (5 - 16) 16 BUN (9 - 20 mg/dL) 13 Creatinine (0.7 - 1.2 mg/dL) 0.9 Estimated GFR (>60 ml/min) > 60 BUN/Creatinine Ratio (7 - 25 %) 14.4 Glucose (65 - 99 mg/dL) 146 H Hemoglobin A1c (4.2 - 5.8 %) 6.5 H Lactic Acid (0.7 - 2.1 mmol/L) 2.3 H Calcium (8.4 - 10.2 mg/dL) 10.4 H Magnesium (1.6 - 2.3 mg/dL) 1.9 Total Bilirubin (0.2 - 1.3 mg/dL) 0.6 Direct Bilirubin (< 0.4 mg/dL) 0.3 AST (17 - 59 U/L) 51 ALT (21 - 72 U/L) 73 H Alkaline Phosphatase (< 127 U/L) 73 Troponin I (<0.11 ng/ml) 0.06 Total Protein (6.3 - 8.2 g/dL) 7.8 Albumin (3.5 - 5.0 g/dL) 4.8 Globulin (1.9 - 4.2 gm/dL) 3.0 Albumin/Globulin Ratio (1.1 - 2.2 %) 1.6 Amylase (30 - 110 U/L) 31 Lipase (23 - 300 U/L) 136 TSH (0.270 - 4.200 uIU/mL) 0.135 L Free T4 (0.78 - 2.44 ng/dL) 1.36 Coagulation PT (9.4 - 12.5 SEC) 10.9 INR (0.90 - 1.17) 1.04 APTT (25 - 37 SEC) 31 Hematology CBC w Diff NO MAN DIFF REQ WBC (4.8 - 10.8 /CUMM) 7.1 RBC (4.70 - 6.10 /CUMM) 5.13 Hgb (14.0 - 18.0 G/DL) 15.5 Hct (42 - 52 %) 45.8 MCV (80.0 - 94.0 FL) 89.3 MCH (27.0 - 31.0 PG) 30.2 RDW (11.5 - 14.5 %) 13.2 Plt Count (130 - 400 /CUMM) 223 MPV (7.4 - 10.4 FL) 6.8 L Gran % (42.2 - 75.2 %) 54.0 Lymphocytes % (20.5 - 51.1 %) 33.9 Monocytes % (1.7 - 9.3 %) 8.2 Eosinophils % (0 - 5 %) 3.4 Basophils % (0.0 - 2.0 %) 0.5 Absolute Granulocytes (1.4 - 6.5 /CUMM) 3.8 Absolute Lymphocytes (1.2 - 3.4 /CUMM) 2.4 Absolute Monocytes (0.10 - 0.60 /CUMM) 0.6 Absolute Eosinophils (0.0 - 0.7 /CUMM) 0.2 Absolute Basophils (0.0 - 0.2 /CUMM) 0 PUBS MCHC (33.0 - 37.0 G/DL) 33.8 Toxicology Serum Alcohol (<10 MG/DL) < 10.0 Assessment/Plan Assessment/Plan Patient is a 65-year-old gentleman with PMH of DM type 2, HTN, chronic back pain and knee pain, s/p both hip replacement ( on pain medication chronically), who came to the ED due to episodes of sweating, severe anxiety and feeling 'clammy' since 04/18/2016. His BP has been elevated. He doesn't have a hx of hypertension. On blood work on admission, his calcium was mildly elevated and his TFT was mildly off. Repeat calcium was down to 10.2 and PTH was 18. His TSH remains mildly suppressed, but free T4 was in the normal range. 1. abnormal TFT-- ? sick euthyroid changes ---repeat TSH and free T4, check TT3 in 2-3 days to look for a trend; ---check thyroid antibody panel and TSI. 2. episodes of sweating, anxiety and feeling clammy along with elevated BP in a patient w/o hx of hypertension-- I will recommend the endocrine work-up. ---recommend changing metoprolol to calcium channel loreto. ---monitor BP and his symptoms. ---start 24 hours urine collection for fractionated catecholamines, metanephrines and 5-HIAA. ---check plasma fractionated catecholamines and metanephrines when he is symptomatic. 3. DM type 2 ---agree with holding off on metformin at this point due to elevated lactic acid level on admission. ---adjust Novolog coverage before meals and add Novolog coverage at bedtime-- detail see the inpatient DM orders. ---monitor FSGs. will follow. The above plan has been discussed with the team. please call if there is any question. Inpatient Diabetes Orders Before Each Meal: Bolus Insulin: Novolog < 80 mg/dl: no coverage 80-100 mg/dl: no coverage 101-120 mg/dl: no coverage 121-150 mg/dl: no coverage 151-200 mg/dl: 3 units 201-250 mg/dl: 4 units 251-300 mg/dl: 5 units 301-350 mg/dl: 6 units 351-400 mg/dl: 7 units > 400 mg/dl: 8 units Bedtime: Bolus Insulin: Novolog < 80 mg/dl: no coverage 80-100 mg/dl: no coverage 101-120 mg/dl: no coverage 121-150 mg/dl: no coverage 151-200 mg/dl: no coverage 201-250 mg/dl: 2 units 251-300 mg/dl: 3 units 301-350 mg/dl: 4 units 351-400 mg/dl: 5 units > 400 mg/dl: 6 units Consult Acknowledgment - Thank you for your consult request.
--- NOTE | 2016-05-22 13:41 | Cons- Cardiology ---
General Information and HPI Consulting Request Date of Consult: 05/22/16 Requested By: SONIA FERREIRA MD Reason for Consult: PVCs in a patient with nonspecific presenting symptoms. Source of Information: patient, old records Exam Limitations: no limitations History of Present Illness: The patient is a 65-year-old male who has been generally healthy. He has mild diabetes and dyslipidemia. He has not had any history of heart disease. He has never been treated for hypertension. He has been treated for dyslipidemia with fish oil only.. He is a recent ex-smoker having stopped a couple of months ago. He's never had chest pain or significant dyspnea on exertion or palpitations. He presented yesterday with a several month history of intermittent diaphoresis and anxiety attacks not associated with chest pain, shortness of breath or palpitations. He has noted recently an increase in his blood pressure up to the 150s to 160s but he has not been treated for this. On presentation he was noted to have frequent PVCs including occasional couplets and was placed on telemetry. He has mildly abnormal thyroid function tests and elevated calcium and an endocrinology workup is in progress. Pheochromocytoma is being evaluated for. The patient states he has had some pharmacologic stress tests in the past prior to surgeries as he has difficulty walking distances because of back and hip issues. At the current time the patient has no complaints of chest pain or shortness of breath and he states he is feeling better than previous. His cardiac workup so far shows negative cardiac enzymes and only nonspecific EKG changes with PVCs. An echocardiogram has been ordered. Allergies/Medications Allergies: Coded Allergies: NO KNOWN ALLERGIES (05/21/16) Home Med List: Aspirin (Ecotrin*) 81 MG TABLET.DR 1 TAB PO DAILY HEART/BLOOD (Reported) Cholecalciferol (Vitamin D3) (Vitamin D) 2,000 UNIT CAPSULE 1 CAP PO DAILY SUPPLEMENT (Reported) Diphenhydramine HCl (Benadryl) 25 MG CAPSULE 1 CAP PO DAILY ALLERGIES ( Reported) Fenofibrate 160 MG TABLET 1 TAB PO DAILY CHOLESTEROL/TRIGLYCERIDES (Reported) Gabapentin 300 MG CAPSULE 1 CAP PO 4XDAILY NERVE PAIN (Reported) Metformin HCl 1,000 MG TABLET 1 TAB PO BID DM (Reported) Multivitamin (Multi-Day Vitamins) 1 EACH TABLET 1 TAB PO DAILY SUPPLEMENT ( Reported) Beaver-3 Fatty Acids/Fish Oil (Fish Oil 1,000 MG Softgel) (Unknown Strength) CAPSULE (Unknown Dose) PO DAILY SUPPLEMENT (Reported) Oxycodone HCl/Acetaminophen (Oxycodone-Acetaminophen 10-325) 10 MG-325 MG TABLET 1 TAB PO Q4-6H PRN PAIN (Reported) Current Medications: Current Medications Sig/Nicole Start time Last Medication Dose Route Stop Time Status Admin Acetaminophen 650 MG Q6P PRN 05/21 2245 DC PO Acetaminophen/ 1 TAB Q6P PRN 05/21 2245 DC Hydrocodone Bitart PO Aspirin Buffered 81 MG DAILY 05/22 1000 AC 05/22 PO 0914 Cholecalciferol 2,000 IU DAILY 05/22 1000 AC 05/22 PO 0915 Diphenhydramine HCl 25 MG DAILY 05/22 1000 AC 05/22 PO 0914 Enoxaparin Sodium 30 MG DAILY 05/22 1000 AC 05/22 SC 0914 Fenofibrate 145 MG DAILY 05/22 1000 AC 05/22 PO 0914 Gabapentin 300 MG 4 TIMES/DAY 05/22 1000 AC 05/22 PO 0914 Hydromorphone HCl 1 MG Q6P PRN 05/21 2245 AC 05/22 IV 1238 Insulin Aspart 0 TIDAC/HS 05/22 1200 AC 05/22 SC 1237 Insulin Aspart 0 TIDAC 05/22 0800 DC 05/22 SC 0915 Lorazepam 0 Q1P PRN 05/22 0315 AC IV Lorazepam 0.5 MG ONCE ONE 05/22 0315 DC 05/22 IV 05/22 0316 0318 Metoprolol Tartrate 12.5 MG BID 05/22 1037 AC 05/22 PO 1255 Multivitamins 1 TAB DAILY 05/22 1000 AC 05/22 Therapeutic PO 0914 Ondansetron HCl 4 MG Q6P PRN 05/22 0245 IV Oxycodone HCl 0 .STK-MED ONE 05/21 1852 DC PO Oxycodone HCl 10 MG ONCE ONE 05/21 1830 DC 05/21 PO 05/21 1831 1852 Sodium Chloride 1,000 ML ONCE ONE 05/21 2215 DC 05/21 IV 05/22 1134 2356 Sodium Chloride 1,000 ML ONCE ONE 05/21 2115 DC 05/21 IV 05/22 0354 2124 Thiamine HCl 100 MG DAILY 05/22 1000 AC 05/22 PO 05/24 1001 0914 Review of Systems Review of Systems: He has chronic back pain and has had hip replacements in the past and is somewhat limited from this. 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 Home (with ) Smoking Status: Former Smoker (quit 1m ago, 1pack/d for 50 y) ETOH Use: occasional use, 6 packs a week Illicit Drug Use: denies illicit drug use Functional Ability ADLs Independent: dressing, eating, toileting, bathing. Ambulation: independent Employment History Employment: Disability Exam & Diagnostic Data Vital Signs and I&O Vital Signs Date Time Temp Pulse Resp B/P Pulse O2 O2 Flow FiO2 Ox Delivery Rate 05/22 1255 154/74 05/22 0900 98.0 66 18 170/80 98 Room Air 05/22 0235 97.7 76 180/90 05/22 0004 98.0 72 20 167/78 94 05/21 1940 97.4 72 18 157/85 96 Room Air 05/21 1825 97.5 66 20 159/86 97 Room Air 05/21 1702 Room Air 05/21 1651 96.8 71 18 185/90 98 Room Air Intake & Output 05/22 1600 05/22 0805/22 0000 05/21 1600 05/21 0800 05/21 0000 Intake Total 840 Output Total 500 Balance 340 Intake, IV 600 Intake, Oral 240 Output, Urine 500 Patient 213 lb Weight Physical Exam: He is a well-developed mildly obese white male in no acute distress HEENT exam is normal Neck veins are not distended Carotids are normal Chest is clear Heart reveals regular rhythm and no murmurs, gallops or rubs. Extremities reveal good pulses and no edema. Neurologic examination is normal. Labs/Dong Results: Laboratory Tests 05/22 05/22 1235 0630 Chemistry Sodium (137 - 145 mmol/L) 142 Potassium (3.5 - 5.1 mmol/L) 4.4 Chloride (98 - 107 mmol/L) 106 Carbon Dioxide (22 - 30 mmol/L) 23 Anion Gap (5 - 16) 14 BUN (9 - 20 mg/dL) 15 Creatinine (0.7 - 1.2 mg/dL) 1.0 Estimated GFR (>60 ml/min) > 60 BUN/Creatinine Ratio (7 - 25 %) 15.0 Calcium (8.4 - 10.2 mg/dL) 10.2 Troponin I (<0.11 ng/ml) 0.05 TSH (0.270 - 4.200 uIU/mL) 0.186 L Free T4 (0.78 - 2.44 ng/dL) 1.37 Thyroxine Binding Indx (23.5 - 40.5 % UPTAKE) 32.7 PTH Intact (13.8 - 85 pg/ml) 18.6 Dopamine Pending Plasma Epinephrine Pending Norepinephrine Pending Total Catecholamines Pending Urines Urine Total Volume Pending Ur Epinephrine 24 Hr Pending U Norepinephrine 24 Hr Pending Ur Dopamine 24 Hr Pending U Tot Catecholamine 24h Pending Urine Creatinine Pending 05/22 05/22 05/22 05/21 0630 0025 0005 2226 Chemistry Lactic Acid (0.7 - 2.1 mmol/L) 1.6 Troponin I (<0.11 ng/ml) 0.06 Vit D 1,25-Dihyd Total Pending 1,25 Dihydroxy Vit D2 Pending 1,25 Dihydroxy Vit D3 Pending Hematology CBC w Diff NO MAN DIFF REQ WBC (4.8 - 10.8 /CUMM) 9.1 RBC (4.70 - 6.10 /CUMM) 5.10 Hgb (14.0 - 18.0 G/DL) 15.6 Hct (42 - 52 %) 45.3 MCV (80.0 - 94.0 FL) 88.8 MCH (27.0 - 31.0 PG) 30.6 RDW (11.5 - 14.5 %) 13.1 Plt Count (130 - 400 /CUMM) 219 MPV (7.4 - 10.4 FL) 6.9 L Gran % (42.2 - 75.2 %) 60.0 Lymphocytes % (20.5 - 51.1 %) 30.1 Monocytes % (1.7 - 9.3 %) 6.2 Eosinophils % (0 - 5 %) 3.2 Basophils % (0.0 - 2.0 %) 0.5 Absolute Granulocytes (1.4 - 6.5 /CUMM) 5.4 Absolute Lymphocytes (1.2 - 3.4 /CUMM) 2.7 Absolute Monocytes (0.10 - 0.60 /CUMM) 0.6 Absolute Eosinophils (0.0 - 0.7 /CUMM) 0.3 Absolute Basophils (0.0 - 0.2 /CUMM) 0 PUBS MCHC (33.0 - 37.0 G/DL) 34.5 Toxicology Urine Opiates Screen (>2000 NG/ML) 1133.00 Methadone Screen (>300 NG/ML) < 40 Barbiturate Screen (>200 NG/ML) < 60 Ur Phencyclidine Scrn (>25 NG/ML) < 6.00 Amphetamines Screen (>1000 NG/ML) < 100 U Benzodiazepines Scrn (>200 NG/ML) < 85 Urine Cocaine Screen (>300 NG/ML) < 50 Urine Cannabis Screen (>50 NG/ML) < 5.00 05/21 05/21 05/21 1830 1714 1711 Chemistry Sodium (137 - 145 mmol/L) 140 Potassium (3.5 - 5.1 mmol/L) 4.4 Chloride (98 - 107 mmol/L) 104 Carbon Dioxide (22 - 30 mmol/L) 20 L Anion Gap (5 - 16) 16 BUN (9 - 20 mg/dL) 13 Creatinine (0.7 - 1.2 mg/dL) 0.9 Estimated GFR (>60 ml/min) > 60 BUN/Creatinine Ratio (7 - 25 %) 14.4 Glucose (65 - 99 mg/dL) 146 H Hemoglobin A1c (4.2 - 5.8 %) 6.5 H Lactic Acid (0.7 - 2.1 mmol/L) 2.3 H Calcium (8.4 - 10.2 mg/dL) 10.4 H Magnesium (1.6 - 2.3 mg/dL) 1.9 Total Bilirubin (0.2 - 1.3 mg/dL) 0.6 Direct Bilirubin (< 0.4 mg/dL) 0.3 AST (17 - 59 U/L) 51 ALT (21 - 72 U/L) 73 H Alkaline Phosphatase (< 127 U/L) 73 Troponin I (<0.11 ng/ml) 0.06 Total Protein (6.3 - 8.2 g/dL) 7.8 Albumin (3.5 - 5.0 g/dL) 4.8 Globulin (1.9 - 4.2 gm/dL) 3.0 Albumin/Globulin Ratio (1.1 - 2.2 %) 1.6 Amylase (30 - 110 U/L) 31 Lipase (23 - 300 U/L) 136 TSH (0.270 - 4.200 uIU/mL) Cancelled 0.135 L Free T4 (0.78 - 2.44 ng/dL) Cancelled 1.36 Coagulation PT (9.4 - 12.5 SEC) 10.9 INR (0.90 - 1.17) 1.04 APTT (25 - 37 SEC) 31 Hematology CBC w Diff NO MAN DIFF REQ WBC (4.8 - 10.8 /CUMM) 7.1 RBC (4.70 - 6.10 /CUMM) 5.13 Hgb (14.0 - 18.0 G/DL) 15.5 Hct (42 - 52 %) 45.8 MCV (80.0 - 94.0 FL) 89.3 MCH (27.0 - 31.0 PG) 30.2 RDW (11.5 - 14.5 %) 13.2 Plt Count (130 - 400 /CUMM) 223 MPV (7.4 - 10.4 FL) 6.8 L Gran % (42.2 - 75.2 %) 54.0 Lymphocytes % (20.5 - 51.1 %) 33.9 Monocytes % (1.7 - 9.3 %) 8.2 Eosinophils % (0 - 5 %) 3.4 Basophils % (0.0 - 2.0 %) 0.5 Absolute Granulocytes (1.4 - 6.5 /CUMM) 3.8 Absolute Lymphocytes (1.2 - 3.4 /CUMM) 2.4 Absolute Monocytes (0.10 - 0.60 /CUMM) 0.6 Absolute Eosinophils (0.0 - 0.7 /CUMM) 0.2 Absolute Basophils (0.0 - 0.2 /CUMM) 0 PUBS MCHC (33.0 - 37.0 G/DL) 33.8 Serology Lyme Disease Antibody Pending Toxicology Serum Alcohol (<10 MG/DL) < 10.0 Diagnostic Data EKG Results EKG on admission shows sinus rhythm at a rate of 71 with multiple PVCs and borderline interventricular conduction delay. Multiple follow-up EKGs have been done with similar findings. CXR Results PATIENT: GENE GE PRESENT AGE: 65 PATIENT ACCOUNT NO: [id number] : 52 LOCATION: [facility] ([facility] ORDERING PHYSICIAN: WINSTON CASTELLON PA-C SERVICE DATE: 05/21/16 EXAM TYPE: RAD - XRY-CHEST XRAY, PA AND LATERAL EXAMINATION: CHEST 2 VIEWS CLINICAL INFORMATION: Nausea, vomiting. COMPARISON: None. TECHNIQUE: PA and lateral views of the chest were obtained. FINDINGS: The cardiac silhouette is not enlarged. The mediastinal and hilar contours are unremarkable. There are neither pleural effusions nor pneumothoraces. There are no consolidations. The osseous structures are unremarkable. IMPRESSION: No evidence for acute disease. 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 <Electronically signed in Other Vendor System> SIGNED BY: POLA POLANCO MD 05/21/16 1800 Assessment/Plan Assessment/Plan The patient is a 65-year-old man who presents with diaphoresis and feelings of anxiety. He has some mild endocrine abnormalities on his labs. Troponins are negative 3. He is having a moderate number of PVCs including occasional couplets. His EKG does not show any other acute changes. His examination is unremarkable. At this point we will pursue the workup with an echocardiogram. He should definitely have a stress test because of his risk factors. He is not sure he could do an adequate treadmill test so we will probably opt for a pharmacologic nuclear stress test. If this cannot be done as an inpatient then we will get it done as an outpatient. I would monitor his blood pressures carefully. If they stay at the same level he likely will need some antihypertensive medication but I would trend his blood pressures for a while longer before starting this. Consult Acknowledgment - Thank you for your consult request.
[2016-05-22 16:31] VITALS: BP 155/74
[2016-05-22 23:41] VITALS: BP 142/70
[2016-05-23] VITALS: BP 142/70
--- NOTE | 2016-05-23 00:08 | NUR ---
APPX 2350, PT HAD ACCELERATED VENTRICULAR RATES WHICH LEAD INTO A FOUR BEAT RUN OF V-TACH. PT CHECKED ON AND WAS RESTING COMFORTABLY. MD AYESHA FALK MADE AWARE. WILL CONTINUE TO [facility].
[2016-05-23 08:23] LABS: ABSOLUTE BASOPHIL COUNT 0 /CUMM (0.0-0.2); ABSOLUTE EOSINOPHIL COUNT 0.3 /CUMM (0.0-0.7); ABSOLUTE GRANULOCYTE CT 4.2 /CUMM (1.4-6.5); ABSOLUTE LYMPH COUNT 3.2 /CUMM (1.2-3.4); ABSOLUTE MONOCYTE COUNT 0.7 /CUMM (0.10-0.60); BASOPHIL % 0.5 % (0.0-2.0); EOSINOPHIL % 3.6 % (0-5); GRANULOCYTE % 49.8 % (42.2-75.2); HEMATOCRIT 46.5 % (42-52); MEAN CORPUSCULAR HGB 30.7 PG (27.0-31.0); MEAN CORPUSCULAR HGB CONC 34.2 G/DL (33.0-37.0); MEAN CORPUSCULAR VOLUME 89.9 FL (80.0-94.0); PLATELET COUNT 215 /CUMM (130-400); RBC DISTRIBUTION WIDTH 13.5 % (11.5-14.5); RED BLOOD CELL CT 5.17 /CUMM (4.70-6.10); WHITE BLOOD CELL COUNT 8.4 /CUMM (4.8-10.8)
[2016-05-23 08:57] VITALS: BP 160/70
--- NOTE | 2016-05-23 09:27 | PN- Housestaff ---
[place] JOEL,SHERYL 05/23/16 0908: Subjective Follow-up For: Suspected pheochromocytoma Tele-Events Since Last Visit: Sinus rhythm, sinus bradycardia HR 59-75bpm. 4 beat V.Tach in midnight. PVC's. Trplets, Bigeminy throughout the night. Subjective: I saw and examined the patient today morning He reports 2 episodes of lightheadedness, palpitations, dizziness over night. Does have some shortness of breath during episodes but otherwise no issues. Currently he is feeling jittery, unable to lie comfortably in the bed. Unable to sleep well. 24hr urine collection - in process. Review of Systems Constitutional: Reports: see HPI. Comments: ROS negative except the above. Objective Last 24 Hrs of Vital Signs/I&O Vital Signs Date Time Temp Pulse Resp B/P Pulse O2 O2 Flow FiO2 Ox Delivery Rate 05/23 0857 98.0 66 20 160/70 96 Room Air 05/23 0000 97.9 67 20 142/70 05/22 2341 97.9 67 20 142/70 97 Room Air 05/22 1631 97.8 65 17 155/74 96 Room Air 05/22 1255 154/74 Intake & Output 05/23 1600 05/23 0800 05/23 0000 Intake Total 435 840 Output Total 600 1350 Balance -165 -510 Intake, IV 15 Intake, Oral 420 840 Output, Urine 600 1350 Physical Exam General Appearance: Alert, Oriented X3, Cooperative Skin: No Rashes, No Breakdown HEENT: Atraumatic, PERRLA, EOMI Neck: Supple Cardiovascular: Normal S1, Normal S2 Lungs: Clear to Auscultation, Normal Air Movement Abdomen: Normal Bowel Sounds, No Tenderness, distended and tense Neurological: Normal Speech Current Medications: Current Medications Sig/Nicole Start time Last Medication Dose Route Stop Time Status Admin Acetaminophen 650 MG Q6P PRN 05/21 2245 DC PO Acetaminophen/ 1 TAB Q6P PRN 05/215 DC Hydrocodone Bitart PO Aspirin Buffered 81 MG DAILY 05/22 1000 AC 05/23 PO 0801 Cholecalciferol 2,000 IU DAILY 05/22 1000 AC 05/23 PO 0802 Diphenhydramine HCl 25 MG DAILY 05/22 1000 AC 05/23 PO 0801 Enoxaparin Sodium 30 MG DAILY 05/22 1000 AC 04/02 SC 0801 Fenofibrate 145 MG DAILY 05/22 1000 AC 05/23 PO 0802 Gabapentin 300 MG 4 TIMES/DAY 05/22 1000 AC 05/23 PO 0801 Hydromorphone HCl 1 MG Q6P PRN 05/21 2245 AC 05/23 IV 0208 Insulin Aspart 0 TIDAC/HS 05/22 1200 AC 05/22 SC 2110 Insulin Aspart 0 TIDAC 05/22 0800 DC 05/22 SC 0915 Lorazepam 0 Q1P PRN 05/22 0315 AC 05/22 IV 2344 Metoprolol Tartrate 12.5 MG BID 05/22 1037 DC 05/22 PO 1255 Multivitamins 1 TAB DAILY 05/22 1000 AC 05/23 Therapeutic PO 0801 Ondansetron HCl 4 MG Q6P PRN 05/22 0245 AC IV Sodium Chloride 1,000 ML ONCE ONE 05/21 2215 DC 05/21 IV 05/22 1134 2356 Thiamine HCl 100 MG DAILY 05/22 1000 AC 05/23 PO 05/24 1001 0802 Last 24 Hrs of Lab/Dong Results Last 24 Hrs of Labs/Mics: Laboratory Tests 05/23/16 0615: Sodium Pending, Potassium Pending, Chloride Pending, Carbon Dioxide Pending, Anion Gap Pending, BUN Pending, Creatinine Pending, BUN/Creatinine Ratio Pending , Triglycerides Pending, Cholesterol Pending, LDL Cholesterol, Calc Pending, HDL Cholesterol Pending, Cholesterol/HDL Ratio Pending, Cortisol AM Sample Pending, CBC w Diff NO MAN DIFF REQ, RBC 5.17, MCV 89.9, MCH 30.7, RDW 13.5, MPV 7.0 L, Gran % 49.8, Lymphocytes % 38.2, Monocytes % 7.9, Eosinophils % 3.6, Basophils % 0.5, Absolute Granulocytes 4.2, Absolute Lymphocytes 3.2, Absolute Monocytes 0.7 H, Absolute Eosinophils 0.3, Absolute Basophils 0, PUBS MCHC 34.2 05/22/16 1235: Dopamine Pending, Plasma Epinephrine Pending, Norepinephrine Pending, Total Catecholamines Pending, Urine Total Volume Pending, Ur Epinephrine 24 Hr Pending , U Norepinephrine 24 Hr Pending, Ur Dopamine 24 Hr Pending, U Tot Catecholamine 24h Pending, Urine Creatinine Pending Lines/Diet/Fluids Lines: peripheral lines Assessment/Plan Assessment: In this 65-year-old gentleman, one month history of episodic anxiety? Palpitations and sweating, in the setting of persistently elevated blood pressure while inpatient may suggest secondary hypertension. Patient has not been started on any antihypertensives currently. It is not uncommon for "essential"/primary hypertension to coexist with secondary hypertension. 1. Uncontrolled hypertension: Primary versus secondary. Increased metoprolo to 25mg BID frequent PVCs and anxiety. May require additional anti-hypertensives. If acceptable blood pressure control is achieved with difficulty or "treatment resistant" hypertension, will evaluate for secondary causes of hypertension. Today we sent his metanephrine levels during the episode. 24hr urine collection is completed by today afternoon. Given patient's previous history of pain medication use, illicit drug use would have been a possible concern, negative U tox suggests against that. 2. Anxiety: Thyroid function tests may suggest sick euthyroid condition. Repeat thyroid function including TSH, freeT4, TSI, Thyroid antibody panel tomorrow. Secondary causes of hypertension, along with anxiety, palpitations, sweating may suggest pheochromocytoma, a less likely possibility. Endocrinology consult placed. PTH intact. 3. Ventricular premature beats. ACS ruled out. PVCs can occur sporadically, but ceratin conditions are associated with more frequent PVCs. One such condition being, Hypertension with LVH. Patient has had overnight bigeminy, trigeminy and quadrigemily, although these rarely cause severe symptoms and have no known prognostic importance, evalutaion with Echo is important in this gentleman with hypertension. Cardiology thinks it is due to ectopy. Persantine stress test tomorrow, NPO over midnight. Echocardiogram ordered. Metoprolol tartarate 25mg BID for HTN, anxiety and PVCs. Cardiology consult. 4. Hyeprlipidemia: TG's - 538, Cholesterol -229, LDL - undectable, HDL - 41. Started on atorvastatin 40mg daily. Needs age appropriate cancer screening. Colonoscopy, low dose CT given smoking history etc as an out-patient. Continue other medications. Problem List: 1. Abnormal EKG 2. Hyperthyroidism 3. Anxiety 4. Diaphoresis Pain Ratin Pain Location: n/a Pain Goal: Pain 4 or less Pain Plan: tylneol prn Tomorrow's Labs & Rationales: BEP to monitor electrolytes MARILYN JOEL,AMIR 05/23/16 0956: Attending MD Review Statement Attending Statement Attending MD Statement: examined this patient, discuss w/resident/PA/AIR TWIST OPERATOR, agreed w/resident/PA/AIR TWIST OPERATOR, reviewed EMR data (avail), discussed with nursing Attending Assessment/Plan: Pt was seen and evalauted. Chart reviewed. Reports intermittent palpitation. However, denies CP or SOB. ambulating OK. Labs c/w Hyperlipidemia, reports taking med but not sure about the name. Appreicate cards input. Consider starting anti statin if no contraindication. Rest of the plan as per resident's note.
--- NOTE | 2016-05-23 11:04 | PN- Cardiology ---
Subjective Subjective: The patient is feeling a little better today. He is still having some episodes of palpitations and diaphoresis. He is having occasional couplets and triplets on the monitor. He denies any chest pains. Today's labs show normal chemistries and CBCs. Calcium was not repeated. The rest of his endocrine workup is pending. His echo is pending for today. Objective Vital Signs and I&Os Vital Signs Date Time Temp Pulse Resp B/P Pulse O2 O2 Flow FiO2 Ox Delivery Rate 05/23 0857 98.0 66 20 160/70 96 Room Air 05/23 0000 97.9 67 20 142/70 04 2341 97.9 67 20 142/70 97 Room Air 05/22 1631 97.8 65 17 155/74 96 Room Air 05/22 1255 154/74 Intake & Output 05/23 1600 05/23 0800 05/23 0000 05/22 1600 05/22 0800 05/22 0000 Intake Total 435 840 720 840 Output Total 600 1350 400 500 Balance -165 -510 320 340 Intake, IV 15 600 Intake, Oral 420 840 720 240 Number 1 Bowel Movements Output, Urine 600 1350 400 500 Patient 213 lb Weight Physical Exam: He is in no distress HEENT exam is normal Chest is clear Heart reveals regular rhythm and no murmurs Extremities no edema Current Medications: Current Medications Sig/Nicole Start time Last Medication Dose Route Stop Time Status Admin Acetaminophen 650 MG Q6P PRN 05/21 2245 DC PO Acetaminophen/ 1 TAB Q6P PRN 05/21 2245 DC Hydrocodone Bitart PO Aspirin Buffered 81 MG DAILY 05/22 1000 AC 05/23 PO 0801 Atorvastatin Calcium 40 MG 1700 05/23 1700 AC PO Cholecalciferol 2,000 IU DAILY 05/22 1000 AC 05/23 PO 0802 Diphenhydramine HCl 25 MG DAILY 05/22 1000 AC 05/23 PO 0801 Enoxaparin Sodium 30 MG DAILY 05/22 1000 AC 05/23 SC 0801 Fenofibrate 145 MG DAILY 05/22 1000 AC 05/23 PO 0802 Gabapentin 300 MG 4 TIMES/DAY 05/22 1000 AC 05/23 PO 0801 Hydromorphone HCl 1 MG Q6P PRN 05/21 2245 AC 05/23 IV 1030 Insulin Aspart 0 TIDAC/HS 05/22 1200 AC 05/22 SC 2110 Lorazepam 0 Q1P PRN 05/22 0315 AC 05/22 IV 2344 Metoprolol Tartrate 12.5 MG BID 05/22 1037 DC 05/22 PO 1255 Multivitamins 1 TAB DAILY 05/22 1000 AC 05/23 Therapeutic PO 0801 Ondansetron HCl 4 MG Q6P PRN 05/22 0245 IV Sodium Chloride 1,000 ML ONCE ONE 05/21 2215 DC 05/21 IV 05/22 1134 2356 Thiamine HCl 100 MG DAILY 05/22 1000 AC 05/23 PO 05/24 1001 0802 Results Last 48 Hrs of Labs/Mics: Laboratory Tests 05/23/16 0615: Anion Gap 10, Estimated GFR > 60, BUN/Creatinine Ratio 16.4, Total Bilirubin Pending, Direct Bilirubin Pending, AST Pending, ALT Pending, Alkaline Phosphatase Pending, Total Protein Pending, Albumin Pending, Triglycerides 538 H, Cholesterol 229 H, LDL Cholesterol, Calc ND, HDL Cholesterol 41, Cholesterol /HDL Ratio 6 H, Cortisol AM Sample 13.1, CBC w Diff NO MAN DIFF REQ, RBC 5.17, MCV 89.9, MCH 30.7, RDW 13.5, MPV 7.0 L, Gran % 49.8, Lymphocytes % 38.2, Monocytes % 7.9, Eosinophils % 3.6, Basophils % 0.5, Absolute Granulocytes 4.2, Absolute Lymphocytes 3.2, Absolute Monocytes 0.7 H, Absolute Eosinophils 0.3, Absolute Basophils 0, PUBS MCHC 34.2 05/22/16 1235: Dopamine Pending, Plasma Epinephrine Pending, Norepinephrine Pending, Total Catecholamines Pending, Urine Total Volume Pending, Ur Epinephrine 24 Hr Pending , U Norepinephrine 24 Hr Pending, Ur Dopamine 24 Hr Pending, U Tot Catecholamine 24h Pending, Urine Creatinine Pending 05/22/16 0630: Anion Gap 14, Estimated GFR > 60, BUN/Creatinine Ratio 15.0, Calcium 10.2, Troponin I 0.05, TSH 0.186 L, Free T4 1.37, Thyroxine Binding Indx 32.7, PTH Intact 18.6 05/22/16 0630: Vit D 1,25-Dihyd Total Pending, 1,25 Dihydroxy Vit D2 Pending, 1,25 Dihydroxy Vit D3 Pending, CBC w Diff NO MAN DIFF REQ, RBC 5.10, MCV 88.8, MCH 30.6, RDW 13.1, MPV 6.9 L, Gran % 60.0, Lymphocytes % 30.1, Monocytes % 6.2, Eosinophils % 3.2, Basophils % 0.5, Absolute Granulocytes 5.4, Absolute Lymphocytes 2.7, Absolute Monocytes 0.6, Absolute Eosinophils 0.3, Absolute Basophils 0, PUBS MCHC 34.5 05/22/16 0025: Urine Opiates Screen 1133.00, Methadone Screen < 40, Barbiturate Screen < 60, Ur Phencyclidine Scrn < 6.00, Amphetamines Screen < 100, U Benzodiazepines Scrn < 85, Urine Cocaine Screen < 50, Urine Cannabis Screen < 5.00 05/22/16 0005: Troponin I 0.06 05/21/16 2226: Lactic Acid 1.6 05/21/16 1830: Lyme Disease Antibody Pending 05/21/16 1714: TSH Cancelled, Free T4 Cancelled 05/21/16 1711: Anion Gap 16, Estimated GFR > 60, BUN/Creatinine Ratio 14.4, Glucose 146 H, Hemoglobin A1c 6.5 H, Lactic Acid 2.3 H, Calcium 10.4 H, Magnesium 1.9, Total Bilirubin 0.6, Direct Bilirubin 0.3, AST 51, ALT 73 H, Alkaline Phosphatase 73, Troponin I 0.06, Total Protein 7.8, Albumin 4.8, Globulin 3.0, Albumin/Globulin Ratio 1.6, Amylase 31, Lipase 136, TSH 0.135 L, Free T4 1.36, PT 10.9, INR 1.04 , APTT 31, CBC w Diff NO MAN DIFF REQ, RBC 5.13, MCV 89.3, MCH 30.2, RDW 13.2, MPV 6.8 L, Gran % 54.0, Lymphocytes % 33.9, Monocytes % 8.2, Eosinophils % 3.4, Basophils % 0.5, Absolute Granulocytes 3.8, Absolute Lymphocytes 2.4, Absolute Monocytes 0.6, Absolute Eosinophils 0.2, Absolute Basophils 0, PUBS MCHC 33.8, Serum Alcohol < 10.0 Assessment/Plan Assessment/Plan The patient's symptoms may be due to his ectopy. I would increase his metoprolol to 25 mg twice daily. I will review his echocardiogram when done. I will try and schedule a stress test for tomorrow, which we will do as a Persantine nuclear stress test since he states he is unable to walk adequately on a treadmill due to back and knee arthritis. Continue telemetry? Yes
--- NOTE | 2016-05-23 12:15 | PN- Diabetes ---
Assessment/Plan Assessment: Patient is a 65-year-old gentleman with PMH of DM type 2, HTN, chronic back pain and knee pain, s/p both hip replacement ( on pain medication chronically), who came to the ED due to episodes of sweating, severe anxiety and feeling 'clammy' since 04/18/2016. His BP has been elevated. He doesn't have a hx of hypertension. On blood work on admission, his calcium was mildly elevated and his TFT was mildly off. Repeat calcium was down to 10.2 and PTH was 18. His TSH remains mildly suppressed, but free T4 was in the normal range. 1. abnormal TFT could be sick euthyroid changes. 2. episodes of sweating, anxiety and feeling clammy along with elevated BP in a patient w/o hx of hypertension: 24 hours urine collection for fractionated catecholamines, metanephrines and 5-HIAA is in process. Patient has had frequent PVCs. Overnight, he had an episode of accelerated ventricular rate with 4-beat run of VT. per Dr. Munoz, it will be better to keep patient on beta- loreto at this point. 3. DM type 2: metformin has been held at this point. Novolog coverage before meals was adjusted and add Novolog coverage at bedtime was added on. His FSGs were 193, 159, 145, 173, 137 and 171. Plan: 1. will continue the current insulin regimen; 2. repeat TSH, free T4 and check TT3 tomorrow; check thyroid antibody panel and TSI as well. 3. f/u 24 hours urine catecholamines and metanephrines. will follow. Subjective Subjective: He feels better and he has had less episodes over past 24 hours. Objective Last 24 Hrs of Vital Signs/I&O Vital Signs Date Time Temp Pulse Resp B/P Pulse O2 O2 Flow FiO2 Ox Delivery Rate 05/23 0857 98.0 66 20 160/70 96 Room Air / 0000 97.9 67 20 142/70 04/ 2341 97.9 67 20 142/70 97 Room Air 05/22 1631 97.8 65 17 155/74 96 Room Air 05/22 1255 154/74 Intake & Output / 1600 04/02 0800 04/ 0000 Intake Total 435 840 Output Total 600 1350 Balance -165 -510 Intake, IV 15 Intake, Oral 420 840 Output, Urine 600 1350 Patient 210 lb Weight Findings Pertinent Lab/Dong Results: Laboratory Tests 05/23 05/22 0615 1235 Chemistry Sodium (137 - 145 mmol/L) 140 Potassium (3.5 - 5.1 mmol/L) 4.1 Chloride (98 - 107 mmol/L) 106 Carbon Dioxide (22 - 30 mmol/L) 24 Anion Gap (5 - 16) 10 BUN (9 - 20 mg/dL) 18 Creatinine (0.7 - 1.2 mg/dL) 1.1 Estimated GFR (>60 ml/min) > 60 BUN/Creatinine Ratio (7 - 25 %) 16.4 Total Bilirubin (0.2 - 1.3 mg/dL) 1.0 Direct Bilirubin (< 0.4 mg/dL) 0.4 AST (17 - 59 U/L) 68 H ALT (21 - 72 U/L) 79 H Alkaline Phosphatase (< 127 U/L) 66 Total Protein (6.3 - 8.2 g/dL) 7.8 Albumin (3.5 - 5.0 g/dL) 4.8 Triglycerides (<150 mg/dL) 538 H Cholesterol (< 200 MG/DL) 229 H LDL Cholesterol, Calc (65 - 129 mg/dL) ND HDL Cholesterol (40 - 60 mg/dL) 41 Cholesterol/HDL Ratio (0.00 - 4.88 %) 6 H Cortisol AM Sample (4.46 - 22.7 ug/dL) 13.1 Dopamine Pending Plasma Epinephrine Pending Norepinephrine Pending Total Catecholamines Pending Hematology CBC w Diff NO MAN DIFF REQ WBC (4.8 - 10.8 /CUMM) 8.4 RBC (4.70 - 6.10 /CUMM) 5.17 Hgb (14.0 - 18.0 G/DL) 15.9 Hct (42 - 52 %) 46.5 MCV (80.0 - 94.0 FL) 89.9 MCH (27.0 - 31.0 PG) 30.7 RDW (11.5 - 14.5 %) 13.5 Plt Count (130 - 400 /CUMM) 215 MPV (7.4 - 10.4 FL) 7.0 L Gran % (42.2 - 75.2 %) 49.8 Lymphocytes % (20.5 - 51.1 %) 38.2 Monocytes % (1.7 - 9.3 %) 7.9 Eosinophils % (0 - 5 %) 3.6 Basophils % (0.0 - 2.0 %) 0.5 Absolute Granulocytes (1.4 - 6.5 /CUMM) 4.2 Absolute Lymphocytes (1.2 - 3.4 /CUMM) 3.2 Absolute Monocytes (0.10 - 0.60 /CUMM) 0.7 H Absolute Eosinophils (0.0 - 0.7 /CUMM) 0.3 Absolute Basophils (0.0 - 0.2 /CUMM) 0 PUBS MCHC (33.0 - 37.0 G/DL) 34.2 Urines Urine Total Volume Pending Ur Epinephrine 24 Hr Pending U Norepinephrine 24 Hr Pending Ur Dopamine 24 Hr Pending U Tot Catecholamine 24h Pending Urine Creatinine Pending
--- NOTE | 2016-05-23 13:55 | ECHOCARDIOGRAM REPORT ---
GENE GE Age: 65 : 1950 Gender: M Exam Date: 05/23/2016 11:20 Exam Location: [address] Ht (in): 72 Wt (lb): 213 BSA: 2.23 BP: 160 / 70 Ordering Physician: SUSAN HENDRICKS MD Referring Physician: Prem Munoz MD Chief, SoC Technologist: Ijeoma Meng [facility] Room Number: [id number] Indications: FREQUENT PVCs Rhythm: Sinus Technical Quality: Good FINDINGS Left Ventricle Normal size left ventricle. Moderate concentric left ventricular hypertrophy. Normal left ventricular ejection fraction visually estimated at >65 %. No obvious regional wall motion abnormalities. Abnormal relaxation filling pattern of the left ventricle for age (stage 1 diastolic dysfunction). Right Ventricle The right ventricle is normal in size and function. Right Atrium The right atrium is normal in size. Left Atrium Mild left atrial dilatation. Mitral Valve Mild thickening/calcification of the mitral valve leaflets. Mild mitral annular calcification. Trace mitral regurgitation. Aortic Valve Focal thickening of the aortic valve cusps. No aortic stenosis. No aortic regurgitation. Tricuspid Valve The tricuspid valve is normal in structure and function. There is no tricuspid regurgitation. Unable to estimate the right ventricular systolic pressure. Pulmonic Valve Structurally normal pulmonic valve. There is no pulmonic regurgitation. Pericardium Normal pericardium without effusion. No pleural effusion. Great Vessels Normal aortic root dimension. The aortic arch and great vessels are well seen and are normal. CONCLUSIONS Moderate concentric left ventricular hypertrophy. Normal left ventricular ejection fraction visually estimated at >65 Abnormal relaxation filling pattern of the left ventricle for age (stage 1 diastolic dysfunction). Mild left atrial dilatation. Mild thickening/calcification of the mitral valve leaflets. Mild mitral annular calcification. Trace mitral regurgitation. Focal thickening of the aortic valve cusps. No aortic stenosis. Unable to estimate the right ventricular systolic pressure. Prem Munoz M.D. (Electronically Signed) Final Date: 23 May 2016 13:54 MEASUREMENTS (Male / Female) Normal Values 2D ECHO LV Diastolic Diameter PLAX 5.5 cm 4.2 - 5.9 / 3.9 - 5.3 cm LV Systolic Diameter PLAX 3.3 cm 2.1 - 4.0 cm LV Fractional Shortening PLAX 40.0 % 25 - 46 % LV Ejection Fraction 2D Teich 70.1 % IVS Diastolic Thickness 1.5 cm LVPW Diastolic Thickness 1.5 cm LV Relative Wall Thickness 0.5 RV Internal Dim ED PLAX 2.8 cm 1.9 - 3.8 cm LVOT Diameter 2.4 cm Aortic Root Diameter 3.5 cm LA Systolic Diameter LX 4.5 cm 3.0 - 4.0 / 2.7 - 3.8 cm LA Volume 53.0 cm 18 - 58 / 22 - 52 cm Ascending Aorta Diameter 3.1 cm DOPPLER AV Peak Velocity 132.0 cm/s AV Peak Gradient 7.0 mmHg AV Mean Velocity 101.0 cm/s AV Mean Gradient 4.0 mmHg AV Velocity Time Integral 27.0 cm LVOT Peak Velocity 91.7 cm/s LVOT Peak Gradient 3.4 mmHg LVOT Mean Velocity 66.5 cm/s LVOT Mean Gradient 2.0 mmHg LVOT Velocity Time Integral 18.9 cm LVOT Stroke Volume 85.5 cm AV Area Cont Eq vti 3.2 cm AV Area Cont Eq pk 3.1 cm MV Peak Velocity 91.0 cm/s MV Peak Gradient 3.3 mmHg MV Mean Velocity 48.8 cm/s MV Mean Gradient 1.0 mmHg Mitral E Point Velocity 55.3 cm/s Mitral A Point Velocity 77.0 cm/s Mitral E to A Ratio 0.7 MV PHT Velocity 56.7 cm/s MV Deceleration [place] 132.0 cm/s MV Pressure Half Time 128.9 ms MV Area PHT 1.7 cm MV Deceleration Time 444.0 ms PV Peak Velocity 107.0 cm/s PV Peak Gradient 4.6 mmHg PV Mean Velocity 67.8 cm/s PV Mean Gradient 2.0 mmHg PV Velocity Time Integral 21.2 cm LV E' Lateral Velocity 2.6 cm/s Mitral E to LV E' Lateral Ratio 21.0 LV E' Septal Velocity 3.4 cm/s Mitral E to LV E' Septal Ratio 16.2
[2016-05-23 16:54] VITALS: BP 122/70
[2016-05-23 22:46] VITALS: BP 160/78
--- NOTE | 2016-05-24 07:07 | PN- Housestaff ---
ROQUE MAHMOOD 05/24/16 0705: Subjective Follow-up For: Chest pain Diabetes Hypercalcemia Complaints: no complaints Tele-Events Since Last Visit: Normal sinus rhythm, heart rate 62-95, multiple PVCs were noted. Subjective: Mr. rubio was comfortable this morning. Did not have any complaints. He did not have any chest pain, shortness of breath. He remained afebrile overnight. Vitals were stable. Blood pressure was adequately controlled on current regimen. Review of Systems Constitutional: Reports: see HPI. Objective Last 24 Hrs of Vital Signs/I&O Vital Signs Date Time Temp Pulse Resp B/P Pulse O2 O2 Flow FiO2 Ox Delivery Rate 05/23 2246 97.7 58 18 160/78 98 Room Air 05/23 2129 59 05/23 1654 97.4 69 20 122/70 96 Room Air 05/23 1449 142/80 05/23 0857 98.0 66 20 160/70 96 Room Air Intake & Output 05/24 0800 05/24 0000 05/23 1600 Intake Total 70 490 720 Output Total 500 Balance 70 490 220 Intake, IV 20 10 Intake, Oral 50 480 720 Output, Urine 500 Patient 210 lb Weight Physical Exam General Appearance: No Acute Distress Other Physical Findings: General Exam: AAOx3, No acute distress, Skin: No rashes, no breakdown HEENT: PERRLA, EOMI Neck: Supple, No JVD No cervical lymphadenopathy CVS: Reg Rate, Normal S1,S2, No MGR Resp: Normal air entry, no ronchi/rales Abdomen: Soft, No tenderness, Normal Bowel Sounds Neuro: Normal Speech, Strength 5/5 b/l x 4 extremities, Sensation intact, CN III -XII NL, Reflexes 2+ Extremities: No cyanosis, pedal edema Current Medications: Current Medications Sig/Nicole Start time Last Medication Dose Route Stop Time Status Admin Aspirin Buffered 81 MG DAILY 05/22 1000 AC 05/23 PO 0801 Atorvastatin Calcium 40 MG 1700 05/23 1700 AC 05/23 PO 1703 Cholecalciferol 2,000 IU DAILY 05/22 1000 AC 05/23 PO 0802 Diphenhydramine HCl 25 MG DAILY 05/22 1000 AC 05/23 PO 0801 Enoxaparin Sodium 30 MG DAILY 05/22 1000 AC 05/23 SC 0801 Fenofibrate 145 MG DAILY 05/22 1000 AC 05/23 PO 0802 Gabapentin 300 MG 4 TIMES/DAY 05/22 1000 AC 05/23 PO 2129 Hydromorphone HCl 1 MG Q6P PRN 05/21 2245 AC 05/24 IV 0419 Insulin Aspart 0 TIDAC/HS 05/22 1200 AC 05/23 SC 1718 Lorazepam 0 Q1P PRN 05/22 0315 AC 05/22 IV 2344 Melatonin 3 MG AT BEDTIME PRN 05/23 2145 AC 05/23 PO 2243 Metoprolol Tartrate 25 MG BID 05/23 1151 AC 05/23 PO 1449 Multivitamins 1 TAB DAILY 05/22 1000 AC 05/23 Therapeutic PO 0801 Ondansetron HCl 4 MG Q6P PRN 05/22 0245 AC 05/24 IV 0356 Thiamine HCl 100 MG DAILY 05/22 1000 AC 05/23 PO 05/24 1001 0802 Last 24 Hrs of Lab/Dong Results Last 24 Hrs of Labs/Mics: Laboratory Tests 05/23/16 1000: Urine Total Volume Pending, U Metanephrines 24 Hr Pending, U Normetanephrine 24h Pending, U Tot Metanephrine 24h Pending 05/23/16 1000: Urine Total Volume Pending, Ur Epinephrine 24 Hr Pending, U Norepinephrine 24 Hr Pending, Ur Dopamine 24 Hr Pending, U Tot Catecholamine 24h Pending, Urine Creatinine Pending Assessment/Plan Assessment: He is a 65-year-old man, one month history of episodic anxiety? Palpitations and sweating, chest discomfort, in the setting of persistently elevated blood pressure while inpatient may suggest secondary hypertension. His past history of diabetes, hypertension, chronic back pain (on opiates). At the time of admission, -temperature 96.8, pulse rate 71, respiration 18, blood pressure 185/90, pulse ox 98% on room air. Lab findings indicated-WBC 7.9 , hemoglobin 15.5, hematocrit 45.8, platelets 223. Normal electrolytes-sodium 140, potassium 4.4, normal renal function BUN 13, serum creatinine 0.9, lactic acid 2.3 (improved to 1.6), serum calcium 10.4, AST 51, ALT 73 (likely steatosis ). Free T4-1.36 (repeat measurement 1.37), TSH 0.135 (repeat measurement 0.186, 0.305), PTH 18.6. Serial cardiac enzymes 0.06, 0.06, 0.05. EKG-nonspecific EKG changes, no ST-T wave changes. Echocardiogram 2016 showed left ventricular ejection fraction about 65%. Mild left atrial dilatation. Focal thickening of aortic valves. No aortic stenosis. Differential diagnosis: #1 essential hypertension #2 rule out ACS 1. Hypertension: Could be primary hypertension, however considering the acuity secondary causes to be ruled out. Pheochromocytoma in the differentials. 24- hour urine metanephrine, catecholamines, 5 HIAA are pending at this time. Patient had episode of diaphoresis, flushing/sweating and plasma metanephrines, catecholamines have been ordered stat. Pending at this time. Patient has been started on metoprolol 25 twice a day as an antihypertensive, and also for possible arrhythmias. Also in differential was opiates withdrawal. 2. Anxiety: Thyroid function tests may suggest sick euthyroid condition. Repeat TSH was within normal limits. 3. Ventricular premature beats. ACS ruled out. Patient has ectopy, and multiple PVCs. Currently on metoprolol. Persantine stress test. Echocardiogram ordered. 4. Hyeprlipidemia: Abnormal triglycerides and cholesterol. Currently on atorvastatin 40 mg by mouth daily. #5 pain management-patient has been requiring intravenous Dilaudid. Plan to change the IV Dilaudid to when necessary, while restarting Percocet 10 mg/325 which is his home dose. If the pain is adequately controlled, would discharge the patient on home dose of pain medication. 6 diabetes-currently on insulin sliding scale, fasting blood glucose in the range of 130-150s. Adequately controlled. #6 DVT prophylaxis-pharmacological, Lovenox. Problem List: 1. Anxiety 2. Hyperthyroidism Pain Ratin Pain Location: Back Pain Goal: Pain 4 or less Pain Plan: Tylenol when necessary Tomorrow's Labs & Rationales: Complete blood picture-basic electrolyte panel THERON FELICIANO 06/09/161: Attending MD Review Statement Attending Statement Attending MD Statement: examined this patient, discuss w/resident/PA/ROAD FREIGHT CONDUCTOR, agreed w/resident/PA/ROAD FREIGHT CONDUCTOR, reviewed EMR data (avail), discussed with nursing Attending Assessment/Plan: Please see my separate attending note for more details. Tylenol when necessary Tomorrow's Labs & Rationales: Complete blood picture-basic electrolyte panel
--- NOTE | 2016-05-24 08:09 | PN- Diabetes ---
Assessment/Plan Assessment: Patient is a 65-year-old gentleman with PMH of DM type 2, HTN, chronic back pain and knee pain, s/p both hip replacement ( on pain medication chronically), who came to the ED due to episodes of sweating, severe anxiety and feeling 'clammy' since 04/18/2016. His BP has been elevated. He doesn't have a hx of hypertension. On blood work on admission, his calcium was mildly elevated and his TFT was mildly off. Repeat calcium was down to 10.2 and PTH was 18. His TSH remains mildly suppressed, but free T4 was in the normal range. 1. abnormal TFT could be sick euthyroid changes. Repeat TFT is pending. 2. episodes of sweating, anxiety and feeling clammy along with elevated BP in a patient w/o hx of hypertension: 24 hours urine collection for fractionated catecholamines, metanephrines and 5-HIAA is done. The reports are pending. Patient has had frequent PVCs. per Dr. Munoz, it will be better to keep patient on beta-loreto at this point. He is going to have stress test done today. 3. DM type 2: metformin has been held at this point. Novolog coverage before meals was adjusted and add Novolog coverage at bedtime was added on. His FSGs were 137, 171, 158 and 166. Plan: 1. will continue the current insulin regimen; 2. f/u repeat thyroid blood test; 3. f/u 24 hours urine catecholamines and metanephrines. will follow. Subjective Subjective: He feels better. Objective Last 24 Hrs of Vital Signs/I&O Vital Signs Date Time Temp Pulse Resp B/P Pulse O2 O2 Flow FiO2 Ox Delivery Rate 05/23 2246 97.7 58 18 160/78 98 Room Air 05/23 2129 59 05/23 1654 97.4 69 20 122/70 96 Room Air 05/23 1449 142/80 05/23 0857 98.0 66 20 160/70 96 Room Air Intake & Output 05/24 1600 05/24 0800 05/24 0000 Intake Total 70 490 Output Total Balance 70 490 Intake, IV 20 10 Intake, Oral 50 480 Findings Pertinent Lab/Dong Results: Laboratory Tests 05/24 05/24 05/23 05/23 0620 0620 UNK UNK Chemistry TSH Pending Free T4 Pending Thyroid Stim Immunoglob Pending Immunology Thyroglobulin Antibody Pending Thyroid Peroxidase Ab Pending Urines Urine Total Volume Pending Ur Epinephrine 24 Hr Pending U Norepinephrine 24 Hr Pending Urine Total Volume Pending U Metanephrines 24 Hr Pending U Normetanephrine 24h Pending U Tot Metanephrine 24h Pending Ur Dopamine 24 Hr Pending U Tot Catecholamine 24h Pending Urine Creatinine Pending
[2016-05-24 08:17] VITALS: BP 122/70
--- NOTE | 2016-05-24 11:03 | PN- Cardiology ---
Subjective Subjective: The patient is feeling okay. He is only complaining of arthritic pain. He is still having ectopy including couplets and triplets on the monitor. He is going to have his stress test shortly which will be a pharmacologic nuclear stress test. He is now on Lopressor 25 mg twice daily. He did have his echocardiogram which showed good left ventricular systolic function. Endocrine workup is still in progress. His lipids were abnormal. Objective Vital Signs and I&Os Vital Signs Date Time Temp Pulse Resp B/P Pulse O2 O2 Flow FiO2 Ox Delivery Rate 05/25 0717 97.1 64 18 122/70 96 Room Air 05/23 2246 97.7 58 18 160/78 98 Room Air 05/23 2129 59 05/23 1654 97.4 69 20 122/70 96 Room Air 05/23 1449 142/80 Intake & Output 05/24 1600 05/24 0800 05/24 0000 05/23 1600 05/23 0800 05/23 0000 Intake Total 70 490 720 435 840 Output Total 245 763 9102 Balance 70 490 220 -165 -510 Intake, IV 20 10 15 Intake, Oral 50 480 720 420 840 Output, Urine 857 075 4307 Patient 210 lb Weight Physical Exam: He is in no distress HEENT exam is normal The chest is clear Heart reveals occasional extrasystole and no murmurs. The rhythm is regular. Extremities reveal no edema Current Medications: Current Medications Sig/Nicole Start time Last Medication Dose Route Stop Time Status Admin Aspirin Buffered 81 MG DAILY 05/22 1000 AC 05/23 PO 0801 Atorvastatin Calcium 40 MG 1700 / 1700 AC 05/23 PO 1703 Cholecalciferol 2,000 IU DAILY 05/22 1000 AC 05/23 PO 0802 Diphenhydramine HCl 25 MG DAILY 05/22 1000 AC 05/23 PO 0801 Enoxaparin Sodium 30 MG DAILY 05/22 1000 AC 05/23 SC 0801 Fenofibrate 145 MG DAILY 05/22 1000 AC 05/23 PO 0802 Gabapentin 300 MG 4 TIMES/DAY 05/22 1000 AC 05/23 PO 2129 Hydromorphone HCl 1 MG Q6P PRN 05/21 2245 AC 05/24 IV 0419 Ibuprofen 400 MG Q4P PRN 05/24 0930 AC PO Insulin Aspart 0 TIDAC/HS 05/22 1200 AC 05/23 SC 1718 Lorazepam 0 Q1P PRN 05/22 0315 AC 05/22 IV 2344 Melatonin 3 MG AT BEDTIME PRN 05/23 2145 AC 05/23 PO 2243 Metoprolol Tartrate 25 MG BID 05/23 1151 AC 05/23 PO 1449 Multivitamins 1 TAB DAILY 05/22 1000 AC 05/23 Therapeutic PO 0801 Ondansetron HCl 4 MG Q6P PRN 05/22 0245 AC 05/24 IV 0356 Oxycodone/ 2 TAB Q4-6 PRN PRN 05/24 0930 AC Acetaminophen PO Patient Medication 1 UNIT ONE NR 05/24 0945 Teaching ED 05/24 1545 Thiamine HCl 100 MG DAILY 05/22 1000 DC 05/23 PO 05/24 1001 0802 Results Last 48 Hrs of Labs/Mics: Laboratory Tests 05/24/16 0620: Thyroid Stim Immunoglob Pending 05/24/16 0620: TSH 0.305, Free T4 1.40, Thyroglobulin Antibody 16, Thyroid Peroxidase Ab 46 05/23/16 1000: Urine Total Volume Pending, U Metanephrines 24 Hr Pending, U Normetanephrine 24h Pending, U Tot Metanephrine 24h Pending 05/23/16 1000: Urine Total Volume Pending, Urine 5-HIAA 24 Hour Pending, Urine Total Volume Pending, Ur Epinephrine 24 Hr Pending, U Norepinephrine 24 Hr Pending, Ur Dopamine 24 Hr Pending, U Tot Catecholamine 24h Pending, Urine Creatinine Pending 05/23/16 0615: Anion Gap 10, Estimated GFR > 60, BUN/Creatinine Ratio 16.4, Total Bilirubin 1.0 , Direct Bilirubin 0.4, AST 68 H, ALT 79 H, Alkaline Phosphatase 66, Total Protein 7.8, Albumin 4.8, Triglycerides 538 H, Cholesterol 229 H, LDL Cholesterol, Calc ND, HDL Cholesterol 41, Cholesterol/HDL Ratio 6 H, Cortisol AM Sample 13.1, CBC w Diff NO MAN DIFF REQ, RBC 5.17, MCV 89.9, MCH 30.7, RDW 13.5, MPV 7.0 L, Gran % 49.8, Lymphocytes % 38.2, Monocytes % 7.9, Eosinophils % 3.6, Basophils % 0.5, Absolute Granulocytes 4.2, Absolute Lymphocytes 3.2, Absolute Monocytes 0.7 H, Absolute Eosinophils 0.3, Absolute Basophils 0, PUBS MCHC 34.2 05/22/16 1235: Dopamine Pending, Plasma Epinephrine Pending, Norepinephrine Pending, Total Catecholamines Pending 05/22/16 1149: Urine Total Volume Cancelled, U Metanephrines 24 Hr Cancelled, U Normetanephrine 24h Cancelled, U Tot Metanephrine 24h Cancelled Recent Imaging Studies: CONCLUSIONS Moderate concentric left ventricular hypertrophy. Normal left ventricular ejection fraction visually estimated at >65 Abnormal relaxation filling pattern of the left ventricle for age (stage 1 diastolic dysfunction). Mild left atrial dilatation. Mild thickening/calcification of the mitral valve leaflets. Mild mitral annular calcification. Trace mitral regurgitation. Focal thickening of the aortic valve cusps. No aortic stenosis. Unable to estimate the right ventricular systolic pressure. Prem Munoz M.D. (Electronically Signed) Final Date: 23 May 2016 13:54 Assessment/Plan Assessment/Plan The patient's symptoms may be due to his ectopy. The ectopy continues. He has abnormal lipids and he was started on a statin. His stress test will be done today and further plans are pending following the results of the stress test. Continue telemetry? Yes
--- NOTE | 2016-05-24 15:23 | PN- Att Addend ---
Attending MD Review Statement Attending Statement Attending MD Statement: examined this patient, discuss w/resident/PA/TRANSCRIPTION COORDINATOR, agreed w/resident/PA/TRANSCRIPTION COORDINATOR, reviewed EMR data (avail), discussed w/nursing, discussed w/ case mgmt Attending Assessment/Plan: Laboratory Tests 05/24/16 0620: Thyroid Stim Immunoglob Pending 05/24/16 0620: TSH 0.305, Free T4 1.40, Thyroglobulin Antibody 16, Thyroid Peroxidase Ab 46 Vital Signs Date Time Temp Pulse Resp B/P Pulse O2 O2 Flow FiO2 Ox Delivery Rate 05/24 1147 62 132/64 05/24 0817 97.1 64 18 122/70 96 Room Air 05/23 2246 97.7 58 18 160/78 98 Room Air 05/23 2129 59 05/23 1654 97.4 69 20 122/70 96 Room Air Patient seen and examined at bedside. Discussed with patient in details the care plan. Patient continues to have some back pain which is chronic. We can restart patient on his home dose of Percocet and continue when necessary Dilaudid and Neurontin for now. Patient is to go for stress test today. Discussed with cardiology the care plan. Patient will finish the second part of the stress test tomorrow. We will follow-up the results. Patient quit smoking in January 2016. I asked patient if he needs any nicotine replacement therapy. Patient does not need any. Patient will need endocrine follow-up for follow-up of his send out tests that were sent during the hospital stay.
[2016-05-24 16:29] VITALS: BP 150/86
--- NOTE | 2016-05-24 17:42 | NUCLEAR MEDICINE REPORT ---
05/26/16 Addendum: This study is reviewed at the request of Dr. Munoz. FINDINGS: On the stress images, the left ventricular chamber is mildly to moderately dilated. There is a mild diffuse decrease in activity in the inferior wall, likely due to attenuation by the adjacent diaphragm, and the latter is visible on review of the raw acquired projections. The rest images are not significantly changed from the post stress images. The gated images show the left ventricular chamber to be mildly to moderately dilated. There is mild diffuse left ventricular hypokinesis and this is slightly more severe in the inferior wall. The calculated left ventricular ejection fraction is 38%. IMPRESSION: No focal perfusion abnormalities are present. The left ventricular chamber is mildly dilated and there is mild diffuse left ventricular hypokinesis with a mildly depressed left ventricular ejection fraction. These findings are most consistent with a dilated cardiomyopathy. ELECTRONICALLY SIGNED IN OTHER VENDOR SYSTEM BY: KHOI HERNADEZ MD EXAMINATION: NM MYOCARDIAL PERFUSION CLINICAL INFORMATION: Hypertension, hyperlipidemia, family history of heart disease, abnormal EKG COMPARISON: None TECHNIQUE: 23.6 mCi technetium Myoview for stress imaging and 37.3 mCi technetium Myoview for rest imaging. SPECT imaging in the coronal, wall motion imaging is also obtained. On the stress images there is artifact from activity below the diaphragm. There is only a mild distal inferolateral apical defect small size. No other convincing evidence for defect. Resting images demonstrate this small defect to be fixed. Review wall motion shows global hypokinesis with more hypokinesis of the inferior wall. The calculated ejection fraction is 38%. Visually I would place this in that range. IMPRESSION: There is only a small inferoapical defect demonstrated here. Artifact from activity below the diaphragm is described. Limits evaluation here. No convincing evidence for pharmacologically induced myocardium at risk. Review of the wall motion shows global hypokinesis with again more focal hypokinesis along the inferior wall. The calculated ejection fraction is 38%.
--- NOTE | 2016-05-24 17:51 | NUR ---
12:00 CIWA. UNABLE TO ASSESS. PT OFF FLOOR AT THIS TIME FOR STRESS TEST.
--- NOTE | 2016-05-24 18:49 | NUR ---
16:00 CIWA NOT ASSESSED. PT OFF FLOOR FOR STRESS TEST AT THIS TIME.
[2016-05-24 23:31] VITALS: BP 100/60
--- NOTE | 2016-05-25 07:21 | PN- Housestaff ---
Subjective Follow-up For: Chest pain diaphoresis Complaints: no complaints Tele-Events Since Last Visit: Normal sinus rhythm, heart rate 56-61, multiple PVCs. Subjective: The patient was comfortable. Did not have any complaints. Did not have any chest pain, shortness of breath, palpitations. He did not have any flushing of the face. Vitals remained stable overnight. Blood pressure was adequately controlled. Elevated blood pressure single reading-154/78 at 8 AM this morning. Review of Systems Constitutional: Reports: see HPI. Objective Last 24 Hrs of Vital Signs/I&O Vital Signs Date Time Temp Pulse Resp B/P Pulse O2 O2 Flow FiO2 Ox Delivery Rate 05/24 2331 97.1 63 18 100/60 94 Room Air 05/24 2113 68 05/24 1629 97.0 60 18 150/86 98 Room Air 05/24 1147 62 132/64 05/24 0817 97.1 64 18 122/70 96 Room Air Intake & Output 05/25 0800 05/25 0000 05/24 1600 Intake Total 490 490 240 Output Total Balance 490 490 240 Intake, IV 10 10 Intake, Oral 480 480 240 Physical Exam General Appearance: No Acute Distress Other Physical Findings: General Exam: AAOx3, No acute distress, Skin: No rashes, no breakdown HEENT: PERRLA, EOMI Neck: Supple, No JVD No cervical lymphadenopathy CVS: Reg Rate, Normal S1,S2, No MGR Resp: Normal air entry, no ronchi/rales Abdomen: Soft, No tenderness, Normal Bowel Sounds Neuro: Normal Speech, Strength 5/5 b/l x 4 extremities, Sensation intact, CN III -XII NL, Reflexes 2+ Extremities: No cyanosis, pedal edema Current Medications: Current Medications Sig/Nicole Start time Last Medication Dose Route Stop Time Status Admin Aspirin Buffered 81 MG DAILY 05/22 1000 AC 05/24 PO 1143 Atorvastatin Calcium 40 MG 1700 05/23 1700 AC 05/24 PO 1728 Cholecalciferol 2,000 IU DAILY 05/22 1000 AC 05/24 PO 1142 Diphenhydramine HCl 25 MG DAILY 05/22 1000 AC 05/23 PO 0801 Dipyridamole 55 MG ONE ONE 05/24 1115 DC Dextrose/Water 29 ML IV 05/24 1514 Enoxaparin Sodium 30 MG DAILY 05/22 1000 AC 04/03 SC 1149 Fenofibrate 145 MG DAILY 05/22 1000 AC 05/24 PO 1144 Gabapentin 300 MG 4 TIMES/DAY 05/22 1000 AC 05/24 PO 2113 Hydromorphone HCl 1 MG Q6P PRN 05/21 2245 AC 05/24 IV 1105 Ibuprofen 400 MG Q4P PRN 05/24 0930 AC 05/24 PO 1431 Insulin Aspart 0 TIDAC/HS 05/22 1200 AC 05/24 SC 1827 Lorazepam 0 Q1P PRN 05/22 0315 AC 05/22 IV 2344 Melatonin 3 MG AT BEDTIME PRN 05/23 2145 AC 05/23 PO 2243 Metoprolol Tartrate 25 MG BID 05/23 1151 AC 05/24 PO 2113 Multivitamins 1 TAB DAILY 05/22 1000 AC 05/24 Therapeutic PO 1143 Ondansetron HCl 4 MG Q6P PRN 05/22 0245 AC 05/24 IV 0356 Oxycodone/ 2 TAB Q4-6 PRN PRN 05/24 0930 AC 05/25 Acetaminophen PO 0301 Patient Medication 1 UNIT ONE NR 05/24 0945 LA Teaching ED 05/24 1545 Ramelteon 8 MG ONCE PRN 05/24 2115 AC 05/24 PO 2150 Thiamine HCl 100 MG DAILY 05/22 1000 DC 05/24 PO 05/24 1001 1144 Assessment/Plan Assessment: He is a 65-year-old man, one month history of episodic anxiety? Palpitations and sweating, chest discomfort, in the setting of persistently elevated blood pressure while inpatient may suggest secondary hypertension. His past history of diabetes, hypertension, chronic back pain (on opiates). Lab findings in the last 24 hours- Stress test- small inferoapical defect demonstrated here. No convincing evidence for pharmacologically induced myocardium at risk. Review of the wall motion shows global hypokinesis with again more focalhypokinesis along the inferior wall. The calculated ejection fraction is 38%. Differential diagnosis: #1 essential hypertension #2 rule out ACS 1. Hypertension: Could be primary hypertension, however considering the acuity secondary causes to be ruled out. Pheochromocytoma in the differentials. 24- hour urine metanephrine, catecholamines, 5 HIAA are pending at this time. Continue metoprolol 25 mg twice a day. 2. Anxiety: Thyroid function tests may suggest sick euthyroid condition. Repeat TSH was within normal limits. 3. Ventricular premature beats. ACS ruled out. Patient has ectopy, and multiple PVCs. Currently on metoprolol. Persantine stress test. Echocardiogram ordered. 4. Hyeprlipidemia: Abnormal triglycerides and cholesterol. Currently on atorvastatin 40 mg by mouth daily. #5 pain management-patient has been requiring intravenous Dilaudid. Currently on Percocet 10 mg/325 which is his home dose. If the pain is adequately controlled, would discharge the patient on home dose of pain medication. Pain adequately controlled. 6 diabetes-currently on insulin sliding scale, fasting blood glucose in the range of 130-150s. Adequately controlled. Follow up with risk management analyst as an outpatient. Patient could be started on lisinopril at low-dose. Renal function normal. #6 DVT prophylaxis-pharmacological, Lovenox. Problem List: 1. Diaphoresis 2. Anxiety Pain Ratin Pain Location: Back Pain Goal: Pain 4 or less Pain Plan: Tylenol when necessary Tomorrow's Labs & Rationales: No labs necessary. Patient to be discharged. DVT/Prophylaxis: pharmacological Consulting Request: Consulting Specialty: Cardiology Discharge Plan Discharge Disposition: home Stable for Discharge? Yes Anticipated Discharge (Day): today If Discharged Today/In 24 Hrs: CMR done
--- NOTE | 2016-05-25 07:32 | Discharge Summary ---
See Addendum Visit Information Visit Dates Admission Date: 05/23/16 Discharge Date: 05/25/16 Hospital Course Course Attending Physician: Theron Winkler MD Primary Care Physician: EDIS MARISCAL MD Consulting Request: Consulting Specialty: Cardiology Hospital Course: He is a 65-year-old man, one month history of episodic anxiety? Palpitations and sweating, chest discomfort, in the setting of persistently elevated blood pressure SBP (150s to 160s) but was not been treated x 1 month prior to admission. Recent ex-smoker, stopped a couple of months ago. On presentation he was noted to have frequent PVCs including occasional couplets and was placed on telemetry for further monitoring. His past history of diabetes, chronic back pain (on opiates). At the time of admission, -temperature 96.8, pulse rate 71, respiration 18, blood pressure 185/90, pulse ox 98% on room air. Lab findings indicated-WBC 7.9 , hemoglobin 15.5, hematocrit 45.8, platelets 223. Normal electrolytes-sodium 140, potassium 4.4, normal renal function BUN 13, serum creatinine 0.9, lactic acid 2.3 (improved to 1.6), serum calcium 10.4, AST 51, ALT 73 (likely steatosis ). 24-hour urine metanephrine, catecholamines, 5 HIAA were ordered are pending at this time. Free T4-1.36, TSH 0.135 PTH 18.6. Repeat TFT on 05/24/2016 showed TSH 0.305, free T4 1.4; anti TPO 46 and anti Tg 16. Serial cardiac enzymes 0.06, 0.06, 0.05. EKG-nonspecific EKG changes, no ST-T wave changes. Echocardiogram 2016 showed left ventricular ejection fraction about 65%. Mild left atrial dilatation. Focal thickening of aortic valves. No aortic stenosis. Differential diagnosis: #1 essential hypertension #2 rule out ACS 1. Hypertension: Could be primary hypertension, however considering the acuity secondary causes needed to be ruled out. Pheochromocytoma in the differentials. Lab results pending at this time. He was started on metoprolol 25 twice a day as an antihypertensive, and also for possible arrhythmias. Blood pressure was adequately controlled on current medication regimen. 2. Anxiety: Thyroid function tests may suggest sick euthyroid condition. Repeat TSH was within normal limits. Dr. brady was consulted for advice. 3. Ventricular premature beats. ACS ruled out. Patient has ectopy, and multiple PVCs. Currently on metoprolol. Persantine stress test revealed small inferoapical defect demonstrated. 4. Hyeprlipidemia: Abnormal triglycerides and cholesterol. Started on atorvastatin 40 mg by mouth daily. #5 pain management-pain was adequately controlled with home dose of Percocet. #6 diabetes-blood glucose was adequately controlled on insulin sliding scale. Metformin was held. #7 DVT prophylaxis-pharmacological, Lovenox. Allergies: Coded Allergies: NO KNOWN ALLERGIES (UNKNOWN 05/24/16) Pertinent Lab Results: XRY-CHEST XRAY, PA AND LATERAL 05/21/16-1708 The cardiac silhouette is not enlarged. The mediastinal and hilar contours are unremarkable. There are neither pleural effusions nor pneumothoraces. There are no consolidations. The osseous structures are unremarkable. IMPRESSION: No evidence for acute disease. --- ECHOCARDIOGRAM 05/23/16- Moderate concentric left ventricular hypertrophy. Normal left ventricular ejection fraction visually estimated at >65 Abnormal relaxation filling pattern of the left ventricle for age (stage 1 diastolic dysfunction). Mild left atrial dilatation. Mild thickening/calcification of the mitral valve leaflets. Mild mitral annular calcification. Trace mitral regurgitation. Focal thickening of the aortic valve cusps. No aortic stenosis. Unable to estimate the right ventricular systolic pressure. -- MYOCARDIAL PERFUSION IMAGING 05/24/16 There is only a small inferoapical defect demonstrated here. Artifact from activity below the diaphragm is described. Limits evaluation here. No convincing evidence for pharmacologically induced myocardium at risk. Review of the wall motion shows global hypokinesis with again more focal hypokinesis along the inferior wall. The calculated ejection fraction is 38%. - Disposition Summary Disposition Principal Diagnosis: Hypertension Additional Diagnosis: Prior to MD Discharge Disposition: other general hospital Discharge Instructions General Discharge Information Code Status: Full Code Patient's Diet: Heart healthy diet Patient's Activity: As tolerated Follow-Up Instructions/Appts: #1 please follow up with her primary care doctor within 1-2 weeks of discharge. #2 please follow-up with your court deputy within 1-2 weeks of discharge. #3 please take your medications as prescribed. #4 if you have worsening symptoms, chest pain please seek medical advice As soon as possible. #5 please talk to her primary care provider about monitoring blood pressure regularly. Medications at Discharge Discharge Medications: Continue taking these medications: Metformin HCl (Metformin HCl) 1,000 MG TABLET 1 Tablet ORAL TWICE DAILY Qty = 180 Comments: Last Taken:NOT GIVEN THIS ADMISSION Time: Oxycodone HCl/Acetaminophen (Oxycodone-Acetaminophen 10-325) 10 MG-325 MG TABLET 1 Tablet ORAL as needed for PAIN Qty = 130 Comments: Last Taken:05/25/16 Time:11:53A.M Gabapentin (Gabapentin) 300 MG CAPSULE 1 Capsule ORAL 4XDAILY Qty = 270 Comments: Last Taken:05/25/16 Time:9:45A.M Aspirin (Ecotrin*) 81 MG TABLET.DR 1 Tablet ORAL DAILY Comments: Last Taken:05/25/16 Time:9:45A.M Fenofibrate (Fenofibrate) 160 MG TABLET 1 Tablet ORAL DAILY Qty = 90 Comments: Last Taken:05/25/16 Time:9:45A.M Cholecalciferol (Vitamin D3) (Vitamin D) 2,000 UNIT CAPSULE 1 Capsule ORAL DAILY Comments: Last Taken:05/25/16 Time:9:45A.M Diphenhydramine HCl (Benadryl) 25 MG CAPSULE 1 Capsule ORAL DAILY Comments: Last Taken:05/25/16 Time:9:45A.M [place]-3 Fatty Acids/Fish Oil (Fish Oil 1,000 MG Softgel) 300 MG-1,000 MG CAPSULE 1 Tablet ORAL DAILY Comments: Last Taken: Time: Multivitamin (Multi-Day Vitamins) 1 EACH TABLET 1 Tablet ORAL DAILY Comments: Last Taken:05/25/16 Time:9:45A.M Start taking the following new medications: Atorvastatin Calcium (Atorvastatin Calcium) 40 MG TABLET 1 Tablet ORAL DAILY Qty = 30 No Refills Instructions: . Comments: Last Taken:05/24/16 Time:5:28P.M Metoprolol Tartrate (Metoprolol Tartrate) 25 MG TABLET 25 Milligram ORAL TWICE DAILY Days = 30 No Refills Comments: Last Taken:05/25/16 Time:9:45A.M Lisinopril (Lisinopril) 5 MG TABLET 1 Tablet ORAL DAILY Qty = 30 No Refills Comments: Last Taken:NOT GIVEN THIS ADMISSION Time: Copies To: DAVEY JOEL,EDIS Attending MD Review Statement Documenting Attending: JODIE JOEL,THERON Smith Other Findings: Patient seen and examined at bedside. Discussed with patient the care plan. Patient is agreeable to be transferred to higher level of care for cardiac catheterization. Agree with the above discharge plan.
[2016-05-25 08:00] VITALS: BP 154/78
--- NOTE | 2016-05-25 08:25 | PN- Diabetes ---
Assessment/Plan Assessment: Patient is a 65-year-old gentleman with PMH of DM type 2, HTN, chronic back pain and knee pain, s/p both hip replacement ( on pain medication chronically), who came to the ED due to episodes of sweating, severe anxiety and feeling 'clammy' since 04/18/2016. His BP has been elevated. He doesn't have a hx of hypertension. On blood work on admission, his calcium was mildly elevated and his TFT was mildly off. Repeat calcium was down to 10.2 and PTH was 18. His TSH remains mildly suppressed, but free T4 was in the normal range. 1. abnormal TFT could be sick euthyroid changes. Repeat TFT on 05/24/2016 showed TSH 0.305, free T4 1.4; anti TPO 46 and anti Tg 16. 2. episodes of sweating, anxiety and feeling clammy along with elevated BP in a patient w/o hx of hypertension: 24 hours urine collection for fractionated catecholamines, metanephrines and 5-HIAA is done. The reports are pending. Patient has had frequent PVCs. per Dr. Munoz, it will be better to keep patient on beta-loreto at this point. 3. DM type 2: metformin has been held at this point. Novolog coverage before meals was adjusted and Novolog coverage at bedtime was added on. His FSGs were 140, 142, 138, 241, 121 and 163. Plan: Patient might go home today. 1. discharge plan for DM: ---no insulin; ---restart metformin 1000 mg twice a day. 2. 24 hours urine catecholamines and metanephrines are still pending. F/U in office after discharge. Subjective Subjective: He feels well this morning. His BP has been better controlled. Objective Last 24 Hrs of Vital Signs/I&O Vital Signs Date Time Temp Pulse Resp B/P Pulse O2 O2 Flow FiO2 Ox Delivery Rate 05/24 2331 97.1 63 18 100/60 94 Room Air 05/24 2113 68 05/24 1629 97.0 60 18 150/86 98 Room Air 05/24 1147 62 132/64 Intake & Output 05/25 1600 / 0800 04 0000 Intake Total 490 490 Output Total Balance 490 490 Intake, IV 10 10 Intake, Oral 480 480
[2016-05-25] MEDS ORDERED: ATORVASTATIN CA40 M1 PO ×2 (08:44→12:03)
--- NOTE | 2016-05-25 08:50 | Patient Discharge Instructions ---
Discharge Instructions General Discharge Information You were seen/treated for: Sweating Chest discomfort Watch for these problems: #1 chest pain, shortness of breath, palpitations #2 diaphoresis, redness of face #3 lightheadedness, dizziness Special Instructions: #1 please follow up with her primary care doctor within 1-2 weeks of discharge. #2 please follow-up with your client renewal specialist within 1-2 weeks of discharge. #3 please take your medications as prescribed. #4 if you have worsening symptoms, chest pain please seek medical advice As soon as possible. #5 please talk to her primary care provider about monitoring blood pressure regularly. #6 You will be transfered to [facility] for cardiac catheterization. Please discuss with your doctor about the final medication changes. Acute Coronary Syndrome Inclusion Criteria At DC or during hospital stay patient has or had the following: ACS DIAGNOSIS No Discharge Core Measures Meds if any: Prescribed or Continued at Discharge Meds if any: NOT Prescribed or Continued at Discharge Congestive Heart Failure Inclusion Criteria At DC or during hospital stay patient has or had the following: CHF DIAGNOSIS No Discharge Core Measures Meds if any: Prescribed or Continued at Discharge Meds if any: NOT Prescribed or Continued at Discharge Cerebrovascular accident Inclusion Criteria At DC or during hospital stay patient has or had the following: CVA/TIA Diagnosis No Discharge Core Measures Meds if any: Prescribed or Continued at Discharge Meds if any: NOT Prescribed or Continued at Discharge Venous thromboembolism Inclusion Criteria VTE Diagnosis No VTE Type NONE VTE Confirmed by (Test) NONE Discharge Core Measures - Per Current guidelines, there needs to be overlap - treatment for the first 5 days of Warfarin therapy. - If discharged on Warfarin prior to 5 days of - overlap therapy, the patient will need to be - assessed for post discharge needs including - *Post discharge parental anticoagulation - *Warfarin and/or parental anticoagulation education - *Follow up date to check INR post discharge At least 5 days overlap therapy as Inpatient No Meds if any: Prescribed or Continued at Discharge Note: Overlap Therapy is Warfarin and Anticoagulant Meds if any: NOT Prescribed or Continued at Discharge
[2016-05-25] MEDS ORDERED: LISINOPRIL10 M1 PO (08:55)
[2016-05-25 09:45] VITALS: BP 154/78
[2016-05-25] MEDS ORDERED: LISINOPRIL5 M1 PO (10:15)
[2016-05-25] MEDS ORDERED: METOPROLOL TART25 M1 PO (10:23)
--- NOTE | 2016-05-25 10:56 | PN- Cardiology ---
See Addendum Subjective Subjective: The patient is feeling well. He is not having any palpitations or chest pain. He had a stress test yesterday which showed a fixed inferolateral/apical defect. No ischemia was definitely seen, however the ejection fraction was low at 38%. He continues to have frequent couplets and triplets on the monitor. Objective Vital Signs and I&Os Vital Signs Date Time Temp Pulse Resp B/P Pulse O2 O2 Flow FiO2 Ox Delivery Rate 05/25 0945 97.5 55 16 154/78 05/25 0800 97.5 55 16 154/78 96 Room Air 05/24 2331 97.1 63 18 100/60 94 Room Air 05/24 2113 68 04/ 1629 97.0 60 18 150/86 98 Room Air 05/24 1147 62 132/64 Intake & Output 05/25 1600 05/25 0800 / 0000 05/24 1600 05/24 0800 05/24 0000 Intake Total 490 490 240 70 490 Output Total Balance 490 490 240 70 490 Intake, IV 10 10 20 10 Intake, Oral 480 480 240 50 480 Physical Exam: He is in no distress HEENT exam is normal Chest is clear Heart reveals regular rhythm with no murmurs There is no peripheral edema Current Medications: Current Medications Sig/Nicole Start time Last Medication Dose Route Stop Time Status Admin Aspirin Buffered 81 MG DAILY 05/22 1000 AC 05/25 PO 0945 Atorvastatin Calcium 40 MG 1700 / 1700 AC 05/24 PO 1728 Cholecalciferol 2,000 IU DAILY 05/22 1000 AC 05/25 PO 0946 Diphenhydramine HCl 25 MG DAILY 05/22 1000 AC 05/25 PO 0945 Dipyridamole 55 MG ONE ONE 05/24 1115 DC Dextrose/Water 29 ML IV 05/24 1514 Enoxaparin Sodium 30 MG DAILY 05/22 1000 AC 05/25 SC 0946 Fenofibrate 145 MG DAILY 05/22 1000 AC 05/25 PO 0946 Gabapentin 300 MG 4 TIMES/DAY 05/22 1000 AC 05/25 PO 0946 Hydromorphone HCl 1 MG Q6P PRN 05/21 2245 AC 05/24 IV 1105 Ibuprofen 400 MG Q4P PRN 05/24 0930 AC 05/24 PO 1431 Insulin Aspart 0 TIDAC/HS 05/22 1200 AC 05/25 SC 0738 Lorazepam 0 Q1P PRN 05/22 0315 AC 05/22 IV 2344 Melatonin 3 MG AT BEDTIME PRN 05/23 2145 AC 05/23 PO 2243 Metoprolol Tartrate 25 MG BID 05/23 1151 AC 05/25 PO 0945 Multivitamins 1 TAB DAILY 05/22 1000 AC 05/25 Therapeutic PO 0946 Ondansetron HCl 4 MG Q6P PRN 05/22 0245 AC 05/24 IV 0356 Oxycodone/ 2 TAB Q4-6 PRN PRN 05/24 0930 AC 05/25 Acetaminophen PO 0738 Patient Medication 1 UNIT ONE NR 05/24 0945 DC Teaching ED 05/24 1545 Ramelteon 8 MG ONCE PRN 05/24 2115 AC 05/24 PO 2150 Results Last 48 Hrs of Labs/Mics: Laboratory Tests 05/24/16 0620: Thyroid Stim Immunoglob Pending 05/24/16 0620: TSH 0.305, Free T4 1.40, Thyroglobulin Antibody 16, Thyroid Peroxidase Ab 46 Recent Imaging Studies: PATIENT: GENE GE PRESENT AGE: 65 PATIENT ACCOUNT NO: [id number] : 52 LOCATION: 1NO ORDERING PHYSICIAN: VEENA TEIXEIRA MD SERVICE DATE: 05/24/16 EXAM TYPE: NUC - MYOCARDIAL PERFUSION IMAGING EXAMINATION: NM MYOCARDIAL PERFUSION CLINICAL INFORMATION: Hypertension, hyperlipidemia, family history of heart disease, abnormal EKG COMPARISON: None TECHNIQUE: 23.6 mCi technetium Myoview for stress imaging and 37.3 mCi technetium Myoview for rest imaging. SPECT imaging in the coronal, wall motion imaging is also obtained. On the stress images there is artifact from activity below the diaphragm. There is only a mild distal inferolateral apical defect small size. No other convincing evidence for defect. Resting images demonstrate this small defect to be fixed. Review wall motion shows global hypokinesis with more hypokinesis of the inferior wall. The calculated ejection fraction is 38%. Visually I would place this in that range. IMPRESSION: There is only a small inferoapical defect demonstrated here. Artifact from activity below the diaphragm is described. Limits evaluation here. No convincing evidence for pharmacologically induced myocardium at risk. Review of the wall motion shows global hypokinesis with again more focal hypokinesis along the inferior wall. The calculated ejection fraction is 38%. DICTATED BY: HEATH MCDONALD MD DATE/TIME DICTATED:05/24/161727 SUBASSEMBLIES WIRER:LISSA DATE/TIME TRANSCRIBED:05/24/161727 CONFIDENTIAL, DO NOT COPY WITHOUT APPROPRIATE AUTHORIZATION. <Electronically signed in Other Vendor System> SIGNED BY: HEATH MCDONALD MD 05/24/16 9520 Assessment/Plan Assessment/Plan The patient's symptoms may be due to his ectopy. The ectopy continues. He has abnormal lipids and he was started on a statin. His stress test is nonspecifically abnormal, although it does not show "definite ischemia". This patient has significant risk factors for coronary disease and is having complex ectopy. I believe he should have cardiac catheterization done on this admission. The patient wishes to go to [place] and I have made arrangements for him to be done at [facility] with Dr. Harris. He will be transferred today. Continue telemetry? Yes
--- NOTE | 2016-05-25 15:02 | PN- Att Addend ---
Attending MD Review Statement Attending Statement Attending MD Statement: examined this patient, discuss w/resident/PA/CLINICAL VETERINARIAN, agreed w/resident/PA/CLINICAL VETERINARIAN, reviewed EMR data (avail), discussed w/nursing, discussed w/ case mgmt Attending Assessment/Plan: Vital Signs Date Time Temp Pulse Resp B/P Pulse O2 O2 Flow FiO2 Ox Delivery Rate 05/25 0945 97.5 55 16 154/78 05/25 0800 97.5 55 16 154/78 96 Room Air 05/24 2331 97.1 63 18 100/60 94 Room Air 05/24 2113 68 05/24 1629 97.0 60 18 150/86 98 Room Air Patient seen and examined at bedside. Discussed with patient the care plan. Patient's stress test showed a fixed defect. 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 Patient is being transferred to higher level of care at [facility] for cardiac catheterization.
--- NOTE | 2016-05-27 14:12 | IV DIPYRIDAMOLE NUCLEAR STRESS ---
Clinical Diagnosis: Abnormal buffer inflated pad: Sarai Barnett Date of Service: 05/24/16 IV DIPYRIDAMOLE INFUSED: 55 mg IV AMINOPHYLLINE INFUSED: 0 mg PATIENT WEIGHT: 213 lbs INTERPRETATION: The patient's baseline EKG showed nonspecific T abnormalities sinus rhythm at 66 BPM. Baseline B/P 170/90. The patient received 55 mg of dipyridamole infused intravenously over a 4 minute period. TC-99M or Myoview was injected after dipyridamole infusion. The patient tolerated the infusion well. There were no EKG changes seen following pharmacologic infusion. Arrhythmias: premature ventricular contractions IMPRESSION: The test was supervised by the interpreting Data Integrity Specialist, who was in attendance during the entire test. No EKG evidence of stress induced myocardial ischemia. See separately dictated Nuclear Report.
[2016-05-29 07:15] LABS: 24 HR URINE VOLUME 2600
== END 2016-05-25 12:30 | disposition short-term general hospital (02) | DRG 309 ==
LOC: ENRESERVDT → ENRESERVTM → ERH 16:17 → ERHI 20:11 → EDBEDREQ 22:08 → 1NO 22:40 → ENPENDDIS 05-23 09:40 → 1NO 05-23 09:48
PROVIDERS: Internal Medicine; Internal Medicine Endocrinology, Diabetes & Metabolism; Physician Assistant; Preventive Medicine Public Health & General Preventive Medicine; ADMIT Internal Medicine
DX: I49.3 Ventricular premature depolarization (principal); I47.2 Ventricular tachycardia; E87.2 Acidosis; E83.52 Hypercalcemia; I10 Essential (primary) hypertension; E07.81 Sick-euthyroid syndrome; F41.9 Anxiety disorder, unspecified; E11.9 Type 2 diabetes mellitus without complications; Z87.891 Personal history of nicotine dependence; E66.9 Obesity, unspecified; Z68.30 Body mass index [BMI] 30.0-30.9, adult; E78.5 Hyperlipidemia, unspecified
CPT/HCPCS: 1NP; 83497; 86618; 36415; 78452; 80307; 82436; 82652; 86376; 86800; 93005; 93010; 93016; 93017; 93306; A9502; G0480; J1245; J1650; J2060; J2405